=== PATIENT | female | born 1980 | race American Indian/Alaskan Native ===

== ENCOUNTER 2016-09-03 23:07 | Emergency (ER) | payer MEDICARE ==
[2016-09-04] MEDS ORDERED: CATAPRES PO ONE ×2 (00:45→03:13)
[2016-09-04] MEDS ORDERED: CATAPRES ONE ×2 (00:50→03:10)
[2016-09-04 00:56] LABS: Basophils % (Auto) 0.3 % (0.0-1.8); Eosinophils % (Auto) 1.5 % (0.0-4.3); Hematocrit 34.5 % (30.3-42.9); Mean Corpuscular HGB Conc 32 % (30-34); Mean Corpuscular Hemoglobin 28 pg (28-32); Mean Corpuscular Volume 86 fl (79-97); Platelet Count 335 K/mm3 (140-440); Red Blood Count 3.99 M/mm3 (3.65-5.03); Red Cell Distribution Width 15.7 % (13.2-15.2); White Blood Count 11.8 K/mm3 (4.5-11.0)
[2016-09-04 00:59] LABS: INR 0.93 (0.87-1.13)
[2016-09-04 01:00] LABS: Partial Thromboplastin Time 36.4 Sec. (24.2-36.6)
[2016-09-04 01:06] LABS: Anion Gap 15 mmol/L; BUN/Creatinine Ratio 18.75; Blood Urea Nitrogen 15 mg/dL (7-17); Calcium 8.9 mg/dL (8.4-10.2); Carbon Dioxide 27 mmol/L (22-30); Chloride 101.5 mmol/L (98-107); Glucose 81 mg/dL (65-100); Potassium 3.8 mmol/L (3.6-5.0); Sodium 140 mmol/L (137-145)
--- NOTE | 2016-09-04 02:00 | Cat Scan Report ---
FINAL REPORT PROCEDURE: CT HEAD/BRAIN WO CON TECHNIQUE: Computerized tomography of the head was performed without contrast material. HISTORY: HTN, Blurred vision, Headache COMPARISON: No prior studies are available for comparison. FINDINGS: Skull and scalp: Normal. Paranasal sinuses: Normal. Ventricles and subarachnoid spaces: Normal. Cerebrum: No evidence of hemorrhage, acute infarction or mass . Cerebellum and brainstem: No evidence of hemorrhage, acute infarction or mass. Vasculature: Normal. Comments: None. IMPRESSION: There is no evidence of an acute intracranial process
[2016-09-04] MEDS ORDERED: PERCOCET 5/325 PO ONE (04:18)
--- NOTE | 2016-09-04 04:26 | Emergency Department Report ---
ED Headache HPI - General Chief Complaint: High BP Stated Complaint: HEADACHE/HAND NUMBNESS/RT FOOT PAIN Time Seen by Provider: 09/04/16 04:07 Source: patient Exam Limitations: no limitations - History of Present Illness Initial Comments: 36-year-old female with past medical history of morbid obesity and hypertension presents to Hosp. complaining of headache 2 days. Headache is in the front part of her head and initially intermittent but now more constant. Pain is moderate in intensity described as throbbing and pressure-like. No neck pain or rigidity reported. Patient complained of intermittent blurred vision in which she is seeing stars. This comes and goes and denies visual abnormality at this time. Patient does not wear corrective lenses. Patient been noncompliant with her blood pressure medicine lisinopril 20 mg/ hydrochlorothiazide 25 mg for the past 2 days since running out of her medication. She complains of a chronic cut to her right plantar surface of her foot for at least 2 weeks that has become bigger and more painful. This initially started as a the crease area of her foot. Patient states her typical systolic pressures in the 150s and her diastolic is in the 80s to 90s. She was apparently seen recently at another ER diagnosed with anxiety attack. Patient is in the process of scheduling an appointment with a new PMD. Patient also complain of a firmness/hard sensation to her right nipple since getting a nipple ring removed. Allergies/Adverse Reactions: Allergies aspirin Allergy (Verified 09/03/16 23:48) Shortness of Breath Home Medications: Ambulatory Orders Lisinopril/Hydrochlorothiazide [Zestoretic 20-25 mg] 1 tab PO QDAY #30 tab 09/04 Neomycin Leigh/Bacitrac Zn/Poly [Neosporin Antibiotic Ointment] 1 appful TP TID #1 bottle 09/04/16 traMADol [Ultram 50 MG tab] 50 mg PO Q6HR PRN #20 tablet 09/04/16 ED Review of Systems ROS: Stated complaint: HEADACHE/HAND NUMBNESS/RT FOOT PAIN Other details as noted in HPI Comment: All other systems reviewed and negative Other: Constitutional: No fevers chills Eyes:as per hpi ENT: No ear pain or throat pain Neck: Denies pain Respiratory: Denies cough wheezing shortness of breath Cardiovascular: Denies chest pain, palpitations, syncope GI: Denies abdominal pain, nausea, vomiting, diarrhea : Denies dysuria Musculoskeletal: Denies back pain Skin: as per hpi Neurologic: Denies numbness, weakness Psychiatric: Denies suicidal ideation, hallucinations ED Past Medical Hx - Past Medical History Previous Medical History?: Yes Hx Hypertension: Yes Additional medical history: obesity - Surgical History Past Surgical History?: Yes Additional Surgical History: c-sec x 2 - Social History Smoking Status: Current Some Day Smoker Substance Use Type: Marijuana - Medications Home Medications: Home Medications Medication Instructions Recorded Confirmed Last Taken Type Lisinopril/Hydrochlorothiazide 1 tab PO QDAY #30 tab 09/04/16 Unknown Rx [Zestoretic 20-25 mg] Neomycin Leigh/Bacitrac Zn/Poly 1 appful TP TID #1 bottle 09/04/16 Unknown Rx [Neosporin Antibiotic Ointment] traMADol [Ultram 50 MG tab] 50 mg PO Q6HR PRN #20 tablet 09/04/16 Unknown Rx ED Physical Exam - General Limitations: No Limitations - Other Other exam information: General: No limitations, patient is alert in no acute distress Head exam: Atraumatic, normocephalic Eyes exam: Normal appearance, pupils equal reactive to light, extraocular movements intact. Visual acuity reported by our and is 20/25 OS, 20/30 OD and 20/20 OU ENT: Moist mucous membrane, normal oropharynx Neck exam: Normal inspection, full range of motion, no meningismus nontender Respiratory exam: Clear to auscultation bilateral, no wheezes, rales, crackles Breasts: Right nipple and breast evaluated. No abscess, erythema, or warmth. Cardiovascular: Normal rate and rhythm, normal heart sounds Abdomen: Soft, nondistended, and nontender, with normal bowel sounds, no rebound, or guarding Extremity: Full range of motion normal inspection no deformity Back: Normal Inspection, full range of motion, no tenderness Neurologic: Alert, oriented x3, cranial nerves intact, no motor or sensory deficit Psychiatric: normal affect, normal mood Skin: Right plantar surface is 5 cm skin cut at the crease of the foot. No warmth, erythema, or drainage. Foot is soiled ED Course Vital Signs 09/03/16 09/04/16 09/04/16 23:45 00:50 03:13 Temperature 98.5 F Pulse Rate 78 75 Respiratory 18 Rate Blood Pressure 185/110 Blood Pressure 181/106 191/123 [Right] O2 Sat by Pulse 100 Oximetry 09/04/16 09/04/16 09/04/16 03:14 03:59 04:16 Temperature Pulse Rate 70 71 Respiratory 18 Rate Blood Pressure 191/123 Blood Pressure 177/112 163/107 [Right] O2 Sat by Pulse 98 Oximetry 09/04/16 09/04/16 04:31 05:00 Temperature Pulse Rate Respiratory Rate Blood Pressure 166/100 168/90 Blood Pressure [Right] O2 Sat by Pulse 97 100 Oximetry - Reevaluation(s) Reevaluation #1: 09/04/16 05:30 gutierrez improved with Percocet in ed. ED Medical Decision Making - Lab Data Result diagrams: 09/04/16 00:21 09/04/16 00:21 Lab Results 09/04/16 09/04/16 09/04/16 Range/Units 00:21 00:21 00:21 WBC 11.8 H (4.5-11.0) K/mm3 RBC 3.99 (3.65-5.03) M/mm3 Hgb 11.0 (10.1-14.3) gm/dl Hct 34.5 (30.3-42.9) % MCV 86 (79-97) fl MCH 28 (28-32) pg MCHC 32 (30-34) % RDW 15.7 H (13.2-15.2) % Plt Count 335 (140-440) K/mm3 Lymph % (Auto) 31.6 (13.4-35.0) % [place] % (Auto) 8.4 H (0.0-7.3) % Eos % (Auto) 1.5 (0.0-4.3) % Baso % (Auto) 0.3 (0.0-1.8) % Lymph # 3.7 (1.2-5.4) K/mm3 [place] # 1.0 H (0.0-0.8) K/mm3 Eos # 0.2 (0.0-0.4) K/mm3 Baso # 0.0 (0.0-0.1) K/mm3 Seg Neutrophils % 58.2 (40.0-70.0) % Seg Neutrophils # 6.9 (1.8-7.7) K/mm3 PT (12.2-14.9) Sec. INR (0.87-1.13) APTT (24.2-36.6) Sec. Sodium 140 (137-145) mmol/L Potassium 3.8 (3.6-5.0) mmol/L Chloride 101.5 (98-107) mmol/L Carbon Dioxide 27 (22-30) mmol/L Anion Gap 15 mmol/L BUN 15 (7-17) mg/dL Creatinine 0.8 (0.7-1.2) mg/dL Estimated GFR > 60 ml/min BUN/Creatinine Ratio 18.75 % Glucose 81 (65-100) mg/dL Calcium 8.9 (8.4-10.2) mg/dL Troponin T (0.00-0.029) ng/mL HCG, Qual Negative (Negative) 09/04/16 09/04/16 Range/Units 00:21 02:47 WBC (4.5-11.0) K/mm3 RBC (3.65-5.03) M/mm3 Hgb (10.1-14.3) gm/dl Hct (30.3-42.9) % MCV (79-97) fl MCH (28-32) pg MCHC (30-34) % RDW (13.2-15.2) % Plt Count (140-440) K/mm3 Lymph % (Auto) (13.4-35.0) % [place] % (Auto) (0.0-7.3) % Eos % (Auto) (0.0-4.3) % Baso % (Auto) (0.0-1.8) % Lymph # (1.2-5.4) K/mm3 [place] # (0.0-0.8) K/mm3 Eos # (0.0-0.4) K/mm3 Baso # (0.0-0.1) K/mm3 Seg Neutrophils % (40.0-70.0) % Seg Neutrophils # (1.8-7.7) K/mm3 PT 12.9 (12.2-14.9) Sec. INR 0.93 (0.87-1.13) APTT 36.4 (24.2-36.6) Sec. Sodium (137-145) mmol/L Potassium (3.6-5.0) mmol/L Chloride (98-107) mmol/L Carbon Dioxide (22-30) mmol/L Anion Gap mmol/L BUN (7-17) mg/dL Creatinine (0.7-1.2) mg/dL Estimated GFR ml/min BUN/Creatinine Ratio % Glucose (65-100) mg/dL Calcium (8.4-10.2) mg/dL Troponin T < 0.010 (0.00-0.029) ng/mL HCG, Qual (Negative) - EKG Data -: EKG Interpreted by Me (sinus rhythm rate [address] elevation IL or T inversion ) - Radiology Data Radiology results: report reviewed (CT head: No acute findings) - Medical Decision Making Patient receiving several doses of clonidine 0.1 mg with repeat dose with reduction of blood pressure. CT does not show any acute abnormality. Percocet provided in the ED for pain. Right foot wound is chronic in tender to palpation however, no erythema, warmth, edema, or drainage noted. Patient encouraged to keep her feet clean to decrease risk of subsequent infection. Antibiotics and topical ointment will be prescribed. Podiatry follow-up will be encouraged - Differential Diagnosis hypertensive emergency, ICH, hypertensive urgency, medication noncompliance Critical Care Time: No Critical care attestation.: If time is entered above; I have spent that time in minutes in the direct care of this critically ill patient, excluding procedure time. ED Disposition Clinical Impression: Hypertension, uncontrolled, Noncompliance with medication regimen, Headache, Foot laceration Disposition: TO HOME OR SELFCARE Is pt being admited?: No Does the pt Need Aspirin: No Condition: Stable Instructions: Hypertension (ED), Laceration (ED), Acute Headache (ED) Additional Instructions: Take the medication as prescribed. Follow up with your primary care doctor and savings counselor provided. Return if symptoms worsen Prescriptions: Lisinopril/Hydrochlorothiazide [Zestoretic 20-25 mg] 1 tab PO QDAY #30 tab Neomycin Leigh/Bacitrac Zn/Poly [Neosporin Antibiotic Ointment] 1 appful TP TID #1 bottle traMADol [Ultram 50 MG tab] 50 mg PO Q6HR PRN #20 tablet PRN Reason: Pain Referrals: PRIMARY CARE, [Primary Care Provider] - 3-5 Days RAFA RUIZ DPM [Staff Physician] - 3-5 Days Time of Disposition: 05:26
[2016-09-04] MEDS ORDERED: ZESTRIL PO ONE (04:29)
[2016-09-04 05:17] VITALS: BP 168/90
== END 2016-09-04 05:37 | disposition home or self-care (01) ==
LOC: ED 23:07
DX: I10 Essential (primary) hypertension (principal); S91.311A Laceration without foreign body, right foot, initial encounter; R51 Headache; F17.200 Nicotine dependence, unspecified, uncomplicated; Z79.82 Long term (current) use of aspirin; X58.XXXD Exposure to other specified factors, subsequent encounter; Y99.8 Other external cause status; E66.9 Obesity, unspecified; X58.XXXA Exposure to other specified factors, initial encounter; Y93.89 Activity, other specified; Y92.89 Other specified places as the place of occurrence of the external cause
CPT/HCPCS: 36415; 70450; 80048; 84484; 84703; 85025; 85610; 85730; 93005; 93010

== ENCOUNTER 2017-01-10 14:43 | Emergency (ER) | payer MEDICARE ==
[2017-01-10 14:58] VITALS: BP 169/95
--- NOTE | 2017-01-10 15:06 | Emergency Department Report ---
Chief Complaint: Abdominal Pain Stated Complaint: ABDOMINAL PAIN/HEADACHE - HPI History of Present Illness: This is a 36-year-old female nontoxic, well nourished in appearance, no acute signs of distress presents to the ED with c/o of generalized abdominal pain 1 day. Patient describes pain as aching level of 8 out of 10. Patient also states she has slight nausea with vomiting as stated vomit consists of food. Last BM last night and normal. She denies any chest pain, shortness of breath, vaginal discharge, dysuria, polyuria, diarrhea, constipation, fever, chills. - Exam Vital Signs: Vital Signs 01/10/17 14:56 Temperature 98.3 F Pulse Rate 75 Respiratory 20 Rate Blood Pressure 169/95 O2 Sat by Pulse 100 Oximetry Physical Exam: GENERAL: The patient is a well-developed, well-nourished female in no apparent distress. Patient is alert and acting appropriately for age. Alert and oriented 3, no apparent distress, normal gait, atraumatic. ABDOMEN: Slight tenderness to generalized abdomen. Soft and nondistended. Positive bowel sounds. No hepatosplenomegaly was noted. No guarding or rebound tenderness, negative epigastric bruit. Negative psoas sign, negative jackson sign , negative McBurneys sign MSE screening note: Focused history and physical exam performed. Due to findings the following was ordered: 1- This initial assessment/diagnostic orders/clinical plan/ treatment(s) is/are subject to change based on pt's health status, clinical progression and re- assessment by fellow clinical providers in the ED. Further treatment and workup at subsequent clinical provers discretion. Patient/guardians urged not to elope from ED as their condition may be serious if not clinically assessed and managed. 2-CBC, CMP, UA, test, lipase, amylase ED Disposition for MSE Condition: Stable Instructions: Abdominal Pain (ED)
[2017-01-10 15:24] LABS: Basophils % (Auto) 0.3 % (0.0-1.8); Eosinophils % (Auto) 0.1 % (0.0-4.3); Hematocrit 38.4 % (30.3-42.9); Hemoglobin 12.5 gm/dl (10.1-14.3); Mean Corpuscular HGB Conc 33 % (30-34); Mean Corpuscular Hemoglobin 28 pg (28-32); Mean Corpuscular Volume 87 fl (79-97); Platelet Count 286 K/mm3 (140-440); Red Blood Count 4.43 M/mm3 (3.65-5.03); Red Cell Distribution Width 15.5 % (13.2-15.2); White Blood Count 7.2 K/mm3 (4.5-11.0)
[2017-01-10 15:57] LABS: Bilirubin,Urine NEG (Negative); Blood,Urine MOD (Negative); Ketones,Urine TR mg/dL (Negative); Leukocyte Esterase,Urine NEG (Negative); Mucus,Urine FEW /HPF; Nitrite,Urine NEG (Negative); Protein,Urine <15 mg/dL mg/dL (Negative); Urobilinogen,Urine < 2.0 mg/dL (<2.0)
[2017-01-10 16:54] LABS: Alanine Aminotransferase 8 units/L (7-56); Albumin 3.9 g/dL (3.9-5); Alkaline Phosphatase 71 units/L (35-129); Amylase 26 units/L (27-131); Anion Gap 18 mmol/L; Blood Urea Nitrogen 9 mg/dL (7-17); Carbon Dioxide 24 mmol/L (22-30); Glucose 73 mg/dL (65-100); Lipase 19 units/L (13-60); Potassium 3.8 mmol/L (3.6-5.0); Sodium 135 mmol/L (137-145)
[2017-01-10 17:21] LABS: BUN/Creatinine Ratio 13; Calcium 8.7 mg/dL (8.4-10.2)
[2017-01-10] MEDS ORDERED: TYLENOL ONE (18:44)
[2017-01-10] MEDS ORDERED: TYLENOL PO ONE (18:44)
== END 2017-01-10 17:15 | disposition left against medical advice (07) ==
LOC: ED 14:43
DX: R10.9 Unspecified abdominal pain (principal); R51 Headache; Z53.21 Procedure and treatment not carried out due to patient leaving prior to being seen by health care provider
CPT/HCPCS: 36415; 80053; 81001; 82150; 83690; 84703; 85025

== ENCOUNTER 2017-01-11 10:09 | Emergency (ER) | payer MEDICARE ==
[2017-01-11 11:03] LABS: Hematocrit 38.4 % (30.3-42.9); Hemoglobin 12.3 gm/dl (10.1-14.3); Mean Corpuscular HGB Conc 32 % (30-34); Mean Corpuscular Hemoglobin 28 pg (28-32); Mean Corpuscular Volume 86 fl (79-97); Platelet Count 271 K/mm3 (140-440); Red Blood Count 4.45 M/mm3 (3.65-5.03); Red Cell Distribution Width 15.7 % (13.2-15.2); White Blood Count 5.6 K/mm3 (4.5-11.0)
[2017-01-11 11:16] LABS: Anion Gap 17 mmol/L; BUN/Creatinine Ratio 13; Blood Urea Nitrogen 9 mg/dL (7-17); Calcium 8.6 mg/dL (8.4-10.2); Carbon Dioxide 27 mmol/L (22-30); Chloride 99.1 mmol/L (98-107); Glucose 91 mg/dL (65-100); Potassium 3.9 mmol/L (3.6-5.0); Sodium 139 mmol/L (137-145)
[2017-01-11 11:38] LABS: Basophils % (Manual) 0 % (0.0-1.8); Blastocytes % (Manual) 0 %; Eosinophils % (Manual) 0 % (0.0-4.3)
[2017-01-11 11:39] LABS: Anisocytosis 1+
[2017-01-11 11:40] LABS: Diff Status Complete; Microcytosis 1+; Ovalocytes Few; Stomatocytes Rare
[2017-01-11] MEDS ORDERED: MORPHINE IV ONE ×2 (17:49→21:41)
[2017-01-11 19:10] LABS: Bacteria,Urine 1+ /HPF (Negative); Bilirubin,Urine NEG (Negative); Blood,Urine NEG (Negative); Ketones,Urine 20 mg/dL (Negative); Leukocyte Esterase,Urine NEG (Negative); Mucus,Urine 3+ /HPF; Nitrite,Urine NEG (Negative); Urobilinogen,Urine < 2.0 mg/dL (<2.0)
[2017-01-11] MEDS ORDERED: ZOFRAN IV ONE (21:41)
--- NOTE | 2017-01-11 21:46 | Ultrasound Report ---
FINAL REPORT EXAM: US ABDOMEN LIMITED HISTORY: RUQ pain TECHNIQUE: Ultrasound right upper quadrant PRIORS: None. FINDINGS: No focal abnormality identified in the liver parenchyma Gallbladder demonstrates no evidence for cholelithiasis or wall thickening. The common bile duct is within normal limits 0.38 centimeters the right kidney is 10.8 x 5.6 x 4.9 centimeters. No evidence for hydronephrosis. Normal renal echogenicity seen Pancreas was not visualized due to overlying bowel gas IMPRESSION: Negative. No evidence for cholelithiasis or biliary obstruction
[2017-01-11] MEDS ORDERED: LIDOCAINE VISCOUS 2% PO ONE (22:38)
[2017-01-11] MEDS ORDERED: MILK OF MAGNESIA PO ONE (22:38)
--- NOTE | 2017-01-11 23:02 | Emergency Department Report ---
ED Abdominal Pain HPI - General Chief Complaint: Abdominal Pain Stated Complaint: ABDOMINAL PAIN,VOMITING Time Seen by Provider: 01/11/17 16:08 Source: patient Mode of arrival: Ambulatory Limitations: No Limitations - History of Present Illness Initial Comments: Patient with abdominal pain for 2 days and has not been able to eat. Screened last night but left before being seen. Last BM was yesterday. Has h/o HTN. MD Complaint: abdominal pain -: days(s) (2) Location: RUQ Radiation: none Migration to: no migration Severity: moderate Severity scale (0 -10): 10 Quality: cramping, stabbing, sharp Consistency: constant, intermittent Improves With: nothing Worsens With: eating Associated Symptoms: denies other symptoms, nausea, vomiting - Related Data Previous Rx's Medication Instructions Recorded Last Taken Type Lisinopril/Hydrochlorothiazide 1 tab PO QDAY #30 tab 09/04/16 Unknown Rx [Zestoretic 20-25 mg] Neomycin/Bacitracin/Polymyxinb 1 appful TP TID #1 bottle 09/04/16 Unknown Rx [Neosporin Antibiotic Ointment] traMADol [Ultram 50 MG tab] 50 mg PO Q6HR PRN #20 tablet 09/04/16 Unknown Rx Omeprazole 40 mg PO DAILY #14 capsule. 01/11/17 Unknown Rx Ondansetron [Zofran TAB] 4 mg PO Q8HR PRN #30 tablet 01/11/17 Unknown Rx Sucralfate [Carafate] 1 gm PO Q6HR #40 tablet 01/11/17 Unknown Rx Allergies Allergy/AdvReac Type Severity Reaction Status Date / Time aspirin Allergy Shortness Verified 01/10/17 14:56 of Breath ED Review of Systems ROS: Stated complaint: ABDOMINAL PAIN,VOMITING Other details as noted in HPI Constitutional: denies: chills, fever Eyes: denies: eye pain, eye discharge, vision change ENT: denies: ear pain, throat pain Respiratory: denies: cough, shortness of breath, wheezing Cardiovascular: denies: chest pain, palpitations Endocrine: no symptoms reported Gastrointestinal: abdominal pain, nausea, vomiting. denies: diarrhea Genitourinary: denies: urgency, dysuria, discharge Musculoskeletal: denies: back pain, joint swelling, arthralgia Skin: denies: rash, lesions Neurological: denies: headache, weakness, paresthesias Psychiatric: denies: anxiety, depression Hematological/Lymphatic: denies: easy bleeding, easy bruising ED Past Medical Hx - Past Medical History Previous Medical History?: Yes Hx Hypertension: Yes Additional medical history: obesity - Surgical History Past Surgical History?: Yes Additional Surgical History: c-sec x 2; scar tissue removal 2012 - Social History Smoking Status: Never Smoker Substance Use Type: None - Medications Home Medications: Home Medications Medication Instructions Recorded Confirmed Last Taken Type Lisinopril/Hydrochlorothiazide 1 tab PO QDAY #30 tab 09/04/16 Unknown Rx [Zestoretic 20-25 mg] Neomycin/Bacitracin/Polymyxinb 1 appful TP TID #1 bottle 09/04/16 Unknown Rx [Neosporin Antibiotic Ointment] traMADol [Ultram 50 MG tab] 50 mg PO Q6HR PRN #20 tablet 09/04/16 Unknown Rx Omeprazole 40 mg PO DAILY #14 capsule.dr 01/11/17 Unknown Rx Ondansetron [Zofran TAB] 4 mg PO Q8HR PRN #30 tablet 01/11/17 Unknown Rx Sucralfate [Carafate] 1 gm PO Q6HR #40 tablet 01/11/17 Unknown Rx ED Physical Exam - General Limitations: No Limitations General appearance: alert, in no apparent distress - Head Head exam: Present: atraumatic, normocephalic - Eye Eye exam: Present: normal appearance - ENT ENT exam: Present: mucous membranes moist - Neck Neck exam: Present: normal inspection - Respiratory Respiratory exam: Present: normal lung sounds bilaterally. Absent: respiratory distress - Cardiovascular Cardiovascular Exam: Present: regular rate, normal rhythm. Absent: systolic murmur, diastolic murmur, rubs, gallop - GI/Abdominal GI/Abdominal exam: Present: soft, tenderness (RUQ but no peritonitis), normal bowel sounds - Extremities Exam Extremities exam: Present: normal inspection - Back Exam Back exam: Present: normal inspection - Neurological Exam Neurological exam: Present: alert, oriented X3 - Psychiatric Psychiatric exam: Present: normal affect, normal mood - Skin Skin exam: Present: warm, dry, intact, normal color. Absent: rash ED Course Vital Signs 01/11/17 01/11/17 01/11/17 10:26 16:20 16:24 Temperature 98.7 F 98.5 F Pulse Rate 78 69 68 Respiratory 16 16 13 Rate Blood Pressure 134/78 Blood Pressure 118/68 [Right] O2 Sat by Pulse 98 99 Oximetry 01/11/17 01/11/17 01/11/17 16:30 16:46 17:00 Temperature Pulse Rate 71 64 76 Respiratory 15 12 17 Rate Blood Pressure 118/68 118/68 118/68 Blood Pressure [Right] O2 Sat by Pulse 99 100 100 Oximetry 01/11/17 01/11/17 01/11/17 17:16 17:30 18:00 Temperature Pulse Rate 70 73 Respiratory 28 H 18 Rate Blood Pressure 125/77 125/77 125/77 Blood Pressure [Right] O2 Sat by Pulse 100 100 98 Oximetry 01/11/17 01/11/17 01/11/17 18:40 19:00 19:54 Temperature 98.3 F Pulse Rate Respiratory 18 Rate Blood Pressure 125/77 125/77 Blood Pressure [Right] O2 Sat by Pulse 99 92 100 Oximetry 01/11/17 01/11/17 01/11/17 19:55 20:00 20:31 Temperature Pulse Rate Respiratory Rate Blood Pressure 131/73 137/81 Blood Pressure [Right] O2 Sat by Pulse 96 97 98 Oximetry 01/11/17 01/11/17 01/11/17 21:01 21:31 22:00 Temperature Pulse Rate Respiratory Rate Blood Pressure 138/73 138/73 139/86 Blood Pressure [Right] O2 Sat by Pulse 100 97 94 Oximetry ED Medical Decision Making - Lab Data Result diagrams: 01/11/17 10:43 01/11/17 10:43 Unremarkable - Radiology Data Radiology results: report reviewed Normal US - Medical Decision Making Patient does not have gallbladder pathology. She likely has gastritis with esophagitis. She had some relief with GI cocktail. Will do carafate, zofran, and omeprazole. Critical care attestation.: If time is entered above; I have spent that time in minutes in the direct care of this critically ill patient, excluding procedure time. ED Disposition Clinical Impression: Abdominal pain, RUQ, Gastritis and duodenitis Disposition: - TO HOME OR SELFCARE Is pt being admited?: No Does the pt Need Aspirin: No Condition: Good Instructions: Abdominal Pain (ED) Prescriptions: Omeprazole 40 mg PO DAILY #14 capsule. Ondansetron [Zofran TAB] 4 mg PO Q8HR PRN #30 tablet PRN Reason: Nausea Sucralfate [Carafate] 1 gm PO Q6HR #40 tablet Referrals: PRIMARY CARE, [Primary Care Provider] - 3-5 Days Time of Disposition: 23:07
[2017-01-11 23:15] VITALS: BP 120/70
== END 2017-01-11 23:29 | disposition home or self-care (01) ==
LOC: ED 10:09
DX: K29.70 Gastritis, unspecified, without bleeding (principal); R10.10 Upper abdominal pain, unspecified; I10 Essential (primary) hypertension; Z98.890 Other specified postprocedural states; Z88.8 Allergy status to other drugs, medicaments and biological substances
CPT/HCPCS: 36415; 76705; 80048; 81001; 82962; 84703; 85007; 85025; 96374; 96375; 96376; 99284; J2270; J2405

== ENCOUNTER 2017-08-27 11:16 | Emergency (ER) | payer MEDICARE ==
[2017-08-27 12:23] LABS: Bacteria,Urine 1+ /HPF (Negative); Bilirubin,Urine NEG (Negative); Blood,Urine NEG (Negative); Color,Urine Yellow (Yellow); HCG Qualitative,Urine Negative (Negative); Mucus,Urine FEW /HPF; Urobilinogen,Urine < 2.0 mg/dL (<2.0)
[2017-08-27] MEDS ORDERED: TORADOL IV ONE (13:21)
[2017-08-27] MEDS ORDERED: ZOFRAN IV ONE (13:21)
[2017-08-27] MEDS ORDERED: PEPCID IV ONE ×2 (13:21→15:39)
[2017-08-27] MEDS ORDERED: NACL 0.9% 1000 ML 1,000 ML IV ONE (13:21)
--- NOTE | 2017-08-27 13:24 | Emergency Department Report ---
Blank Doc - Documentation Documentation: Patient is a 37-year-old [place] female who is presenting with right upper quadrant pain with radiation to the right mid back for approximately 10 days. Patient states pain is worse after she eats has been some nausea and vomiting as well. Patient has an appointment to see a GI doctor coming up soon does not see anyone as of yet. Patient denies any fever at this time. Patient will be physical exam does have some right upper quadrant tenderness. Patient morbidly obese. Patient will have a ultrasound of the abdomen done to rule out gallstones and cholecystitis the patient will be reassessed. Is
[2017-08-27 14:49] LABS: Basophils % (Auto) 0.2 % (0.0-1.8); Eosinophils # (Auto) 0.1 K/mm3 (0.0-0.4); Hematocrit 34.4 % (30.3-42.9); Hemoglobin 11.6 gm/dl (10.1-14.3); Lymphocytes # (Auto) 2.4 K/mm3 (1.2-5.4); Mean Corpuscular HGB Conc 34 % (30-34); Mean Corpuscular Hemoglobin 28 pg (28-32); Mean Corpuscular Volume 83 fl (79-97); Monocytes # (Auto) 1.1 K/mm3 (0.0-0.8); Monocytes % (Auto) 13.3 % (0.0-7.3); Platelet Count 281 K/mm3 (140-440); Red Blood Count 4.17 M/mm3 (3.65-5.03); Red Cell Distribution Width 16.7 % (13.2-15.2)
--- NOTE | 2017-08-27 14:53 | Ultrasound Report ---
FINAL REPORT EXAM: US ABDOMEN COMPLETE HISTORY: right upper quad pain TECHNIQUE: Abdomen ultrasound. PRIORS: Limited abdomen ultrasound January 11, 2017. FINDINGS: Evaluation limited by patient body habitus. Liver: Unremarkable. No distinct lesions. Gallbladder: No gallstones or sludge. Wall is within normal limits. 3.9 mm common bile duct is within normal limits. Pancreas: Limited evaluation because of patient's body habitus. Kidneys: 11.6 and 11.9 cm right and left kidneys are unremarkable. Spleen: Unremarkable. 10.7 cm. Proximal aorta measures 1.8 cm. IVC is patent. No free fluid. IMPRESSION: Unremarkable.
--- NOTE | 2017-08-27 14:57 | Emergency Department Report ---
ED Abdominal Pain HPI - General Chief Complaint: Abdominal Pain Stated Complaint: ABDOMINAL/BACK PAIN Time Seen by Provider: 08/27/17 13:08 Source: patient Mode of arrival: Ambulatory Limitations: No Limitations - History of Present Illness Initial Comments: This is a 38-year-old female nontoxic, well nourished in appearance, no acute signs of distress presents to the ED with c/o of acute on chronic right upper abdominal pain. Patient states is nauseous but denies any vomiting. Patient describes abdominal pain as cramping and aching with level of 3/10. Patient does follow a primary care doctor for this. Patient denies chest pain, short of breath, fever, chills, headache, stiff neck, numbness or tingling. Patient denies any diarrhea or constipation. Patient denies any vaginal bleeding or discharge. Patient denies any recent travels. Patient stated allergies to aspirin MD Complaint: abdominal pain -: month(s) Location: RUQ Radiation: R flank Migration to: no migration Severity: mild Severity scale (0 -10): 3 Quality: aching Consistency: intermittent Improves With: nothing Worsens With: nothing Associated Symptoms: nausea. denies: vomiting, diarrhea, fever, chills, constipation, dysuria, hematemesis, hematochezia, melena, hematuria, anorexia, syncope - Related Data Previous Rx's Medication Instructions Recorded Last Taken Type Lisinopril/Hydrochlorothiazide 1 tab PO QDAY #30 tab 09/04/16 Unknown Rx [Zestoretic 20-25 mg] Neomycin/Bacitracin/Polymyxinb 1 appful TP TID #1 bottle 09/04/16 Unknown Rx [Neosporin Antibiotic Ointment] traMADol [Ultram 50 MG tab] 50 mg PO Q6HR PRN #20 tablet 09/04/16 Unknown Rx Omeprazole 40 mg PO DAILY #14 capsule. 01/11/17 Unknown Rx Ondansetron [Zofran TAB] 4 mg PO Q8HR PRN #30 tablet 01/11/17 Unknown Rx Sucralfate [Carafate] 1 gm PO Q6HR #40 tablet 01/11/17 Unknown Rx Acetaminophen 500 mg PO Q8H PRN #30 tablet 08/27/17 Unknown Rx Ondansetron [Zofran Odt] 4 mg PO Q8HR PRN #20 tab.rapdis 08/27/17 Unknown Rx Sulfamethoxazole/Trimethoprim 1 each PO BID #14 tablet 08/27/17 Unknown Rx [Bactrim DS TAB] Allergies Allergy/AdvReac Type Severity Reaction Status Date / Time aspirin Allergy Shortness Verified 01/10/17 14:56 of Breath ED Review of Systems ROS: Stated complaint: ABDOMINAL/BACK PAIN Other details as noted in HPI Constitutional: denies: chills, fever Eyes: denies: eye pain, eye discharge, vision change ENT: denies: ear pain, throat pain Respiratory: denies: cough, shortness of breath, wheezing Cardiovascular: denies: chest pain, palpitations Endocrine: no symptoms reported Gastrointestinal: abdominal pain, nausea. denies: vomiting, diarrhea Genitourinary: denies: urgency, dysuria, discharge Musculoskeletal: denies: back pain, joint swelling, arthralgia Skin: denies: rash, lesions Neurological: denies: headache, weakness, paresthesias Psychiatric: denies: anxiety, depression Hematological/Lymphatic: denies: easy bleeding, easy bruising ED Past Medical Hx - Past Medical History Hx Hypertension: Yes Additional medical history: obesity, IBS - Surgical History Additional Surgical History: c-sec x 2; scar tissue removal 2012 - Social History Smoking Status: Never Smoker Substance Use Type: None - Medications Home Medications: Home Medications Medication Instructions Recorded Confirmed Last Taken Type Lisinopril/Hydrochlorothiazide 1 tab PO QDAY #30 tab 09/04/16 Unknown Rx [Zestoretic 20-25 mg] Neomycin/Bacitracin/Polymyxinb 1 appful TP TID #1 bottle 09/04/16 Unknown Rx [Neosporin Antibiotic Ointment] traMADol [Ultram 50 MG tab] 50 mg PO Q6HR PRN #20 tablet 09/04/16 Unknown Rx Omeprazole 40 mg PO DAILY #14 capsule. 01/11/17 Unknown Rx Ondansetron [Zofran TAB] 4 mg PO Q8HR PRN #30 tablet 01/11/17 Unknown Rx Sucralfate [Carafate] 1 gm PO Q6HR #40 tablet 01/11/17 Unknown Rx Acetaminophen 500 mg PO Q8H PRN #30 tablet 08/27/17 Unknown Rx Ondansetron [Zofran Odt] 4 mg PO Q8HR PRN #20 tab.rapdis 08/27/17 Unknown Rx Sulfamethoxazole/Trimethoprim 1 each PO BID #14 tablet 08/27/17 Unknown Rx [Bactrim DS TAB] ED Physical Exam - General Limitations: No Limitations General appearance: alert, in no apparent distress - Head Head exam: Present: atraumatic, normocephalic - Eye Eye exam: Present: normal appearance Pupils: Present: normal accommodation - ENT ENT exam: Present: normal exam, mucous membranes moist - Neck Neck exam: Present: normal inspection, full ROM. Absent: tenderness, meningismus, lymphadenopathy - Respiratory Respiratory exam: Present: normal lung sounds bilaterally. Absent: respiratory distress, wheezes, rales, rhonchi, stridor, chest wall tenderness, accessory muscle use, decreased breath sounds, prolonged expiratory - Cardiovascular Cardiovascular Exam: Present: regular rate, normal rhythm, normal heart sounds. Absent: bradycardia, tachycardia, irregular rhythm, systolic murmur, diastolic murmur, rubs, gallop - GI/Abdominal GI/Abdominal exam: Present: soft, tenderness (RUQ), normal bowel sounds. Absent : distended, guarding, rebound, rigid, diminished bowel sounds - Expanded GI/Abdominal Exam Expanded GI/Abdominal exam: Absent: psoas sign, obturator sign, heel tap sign, Lafaro's sign, Rovsing's sign, tenderness at Mcbur[place]'s Point, ascites - Rectal Rectal exam: Present: deferred - Extremities Exam Extremities exam: Present: normal inspection, full ROM, normal capillary refill. Absent: tenderness - Back Exam Back exam: Present: normal inspection, full ROM. Absent: tenderness, CVA tenderness (R), CVA tenderness (L), muscle spasm, paraspinal tenderness, vertebral tenderness, rash noted - Neurological Exam Neurological exam: Present: alert, oriented X3, normal gait - Psychiatric Psychiatric exam: Present: normal affect, normal mood - Skin Skin exam: Present: warm, dry, intact, normal color. Absent: rash ED Course Vital Signs 08/27/17 11:36 Temperature 98 F Pulse Rate 87 Respiratory 20 Rate Blood Pressure 174/88 O2 Sat by Pulse 97 Oximetry - Reevaluation(s) Reevaluation #1: 08/27/17 14:58 Patient is speaking in full sentences with no signs of distress noted. - Consultations Consultation #1: Patient has been consulted with Josemanuel Cotton about patient history, physical exam, and labs/US report and examined and screened patient and agrees to ED plan of care and discharge plan of care. ED Medical Decision Making - Lab Data Result diagrams: 08/27/17 14:39 - Medical Decision Making This is a 37-year-old female that presents with abdominal pain and UTI. Patient is stable and was examined by me and Dr. Kee. There is slight abdominal tenderness. Negative signs of symptoms of appendicitis. Labs obtained. UA obtained with slight elevation in WBCs. US of abdomen obtained and dictated by the radiologist. Patient is notified of the report with no questions noted by the patient. Vital signs are stable prior to discharge. Patient received 1L normal saline, Zofran, Pepcid, and Toradol in the ED which patient stated symptoms has resolved and subsided. A by mouth challenge has been obtained and patient tolerated well with no nausea vomiting. Patient was notified of strict precautions of appendicitis symptoms and to return to the ED if symptoms occurs as soon as possible. Patient was also instructed to Follow- up with a primary care doctor in 3-5 days or if symptoms worsen and continue return to emergency room as soon as possible. At time of discharge, the patient does not seem toxic or ill in appearance. No acute signs of distress noted. Patient agrees to discharge treatment plan of care. No further questions noted by the patient. Critical care attestation.: If time is entered above; I have spent that time in minutes in the direct care of this critically ill patient, excluding procedure time. ED Disposition Clinical Impression: Nausea, UTI (urinary tract infection) Abdominal pain Qualifiers: Abdominal location: right upper quadrant Qualified Code(s): R10.11 - Right upper quadrant pain Disposition: - TO HOME OR SELFCARE Is pt being admited?: No Does the pt Need Aspirin: No Condition: Stable Instructions: Acute Nausea and Vomiting (ED), Abdominal Pain (ED) Additional Instructions: Follow-up with a primary care/GI doctor in 3-5 days or if symptoms worsen and continue return to emergency room as soon as possible. Prescriptions: Acetaminophen 500 mg PO Q8H PRN #30 tablet PRN Reason: Pain , Severe (7-10) Ondansetron [Zofran Odt] 4 mg PO Q8HR PRN #20 tab.rapdis PRN Reason: Nausea Sulfamethoxazole/Trimethoprim [Bactrim DS TAB] 1 each PO BID #14 tablet Referrals: PRIMARY CARE, [Primary Care Provider] - 3-5 Days RAFAT LIM MD [Staff Physician] - 3-5 Days [facility] [Provider Group] - 3-5 Days [facility] [Outside] - 3-5 Days Forms: Work/School Release Form(ED)
[2017-08-27 15:04] LABS: Alanine Aminotransferase 9 units/L (7-56); Albumin 3.9 g/dL (3.9-5); BUN/Creatinine Ratio 21; Blood Urea Nitrogen 15 mg/dL (7-17); Calcium 8.8 mg/dL (8.4-10.2); Hemolysis Index 1
[2017-08-27] MEDS ORDERED: TORADOL ONE (15:38)
[2017-08-27] MEDS ORDERED: ZOFRAN ONE (15:38)
[2017-08-27] MEDS ORDERED: TYLENOL PO ONE (16:53)
[2017-08-27 17:12] VITALS: BP 168/88
== END 2017-08-27 17:11 | disposition home or self-care (01) ==
LOC: ED 11:16
DX: N39.0 Urinary tract infection, site not specified (principal); I10 Essential (primary) hypertension; Z88.6 Allergy status to analgesic agent
CPT/HCPCS: 36415; 76700; 80053; 81001; 81025; 83690; 85025; 96374; 96375; 99284; J1885; J2405; J7030

== ENCOUNTER 2017-09-11 20:03 | Emergency (ER) | payer MEDICARE ==
[2017-09-11 21:44] VITALS: BP 157/92
[2017-09-11 22:08] LABS: Basophils % (Auto) 0.3 % (0.0-1.8); Eosinophils # (Auto) 0.1 K/mm3 (0.0-0.4); Eosinophils % (Auto) 0.6 % (0.0-4.3); Hematocrit 34.9 % (30.3-42.9); Lymphocytes # (Auto) 1.9 K/mm3 (1.2-5.4); Mean Corpuscular HGB Conc 34 % (30-34); Mean Corpuscular Hemoglobin 28 pg (28-32); Mean Corpuscular Volume 82 fl (79-97); Monocytes # (Auto) 1.4 K/mm3 (0.0-0.8); Monocytes % (Auto) 12.8 % (0.0-7.3); Platelet Count 335 K/mm3 (140-440); Red Blood Count 4.23 M/mm3 (3.65-5.03); Red Cell Distribution Width 16.6 % (13.2-15.2)
[2017-09-11 22:19] LABS: Alanine Aminotransferase 7 units/L (7-56); Albumin 4.1 g/dL (3.9-5); BUN/Creatinine Ratio 17; Blood Urea Nitrogen 12 mg/dL (7-17); Calcium 9.3 mg/dL (8.4-10.2); Hemolysis Index 4
[2017-09-11] MEDS ORDERED: TYLENOL PO ONE (23:50)
== END 2017-09-12 01:11 | disposition left against medical advice (07) ==
LOC: ED 20:03
DX: N64.4 Mastodynia (principal); Z53.21 Procedure and treatment not carried out due to patient leaving prior to being seen by health care provider
CPT/HCPCS: 36415; 80053; 85025

== ENCOUNTER 2017-09-12 07:37 | Emergency (ER) | payer MEDICARE ==
--- NOTE | 2017-09-12 09:33 | Emergency Department Report ---
- General Chief complaint: Skin/Abscess/Foreign Body Stated complaint: BREAST/RIGHT ARM PAIN Time Seen by Provider: 09/12/17 09:22 Source: patient Mode of arrival: Ambulatory Limitations: No Limitations - History of Present Illness Initial comments: Patient is a 37-year-old female who is presenting with right breast swelling. Patient states that for the past year off and on she does have some discomfort in the right breast. Patient states for the past 3-4 days he's had some increased swelling and pain. Patient states pain is a 6 out of 10 and aching. She denies any nipple discharge. Patient states has been no fevers chills nausea vomiting at this time. - Related Data Previous Rx's Medication Instructions Recorded Last Taken Type Lisinopril/Hydrochlorothiazide 1 tab PO QDAY #30 tab 09/04/16 Unknown Rx [Zestoretic 20-25 mg] Neomycin/Bacitracin/Polymyxinb 1 appful TP TID #1 bottle 09/04/16 Unknown Rx [Neosporin Antibiotic Ointment] traMADol [Ultram 50 MG tab] 50 mg PO Q6HR PRN #20 tablet 09/04/16 Unknown Rx Omeprazole 40 mg PO DAILY #14 capsule.dr 01/11/17 Unknown Rx Ondansetron [Zofran TAB] 4 mg PO Q8HR PRN #30 tablet 01/11/17 Unknown Rx Sucralfate [Carafate] 1 gm PO Q6HR #40 tablet 01/11/17 Unknown Rx Acetaminophen 500 mg PO Q8H PRN #30 tablet 08/27/17 Unknown Rx Ondansetron [Zofran Odt] 4 mg PO Q8HR PRN #20 tab.rapdis 08/27/17 Unknown Rx Sulfamethoxazole/Trimethoprim 1 each PO BID #14 tablet 08/27/17 Unknown Rx [Bactrim DS TAB] Clindamycin [Clindamycin CAP] 300 mg PO Q8H 7 Days cap 09/12/17 Unknown Rx HYDROcodone/APAP 5-325 [[place] 1 each PO Q6HR PRN #15 tablet 09/12/17 Unknown Rx 5/325] Ibuprofen [Motrin] 800 mg PO Q8HR PRN #14 tablet 09/12/17 Unknown Rx Allergies Allergy/AdvReac Type Severity Reaction Status Date / Time aspirin Allergy Shortness Verified 09/12/17 07:49 of Breath Abscess Boil HPI - HPI Chief Complaint: Skin/Abscess/Foreign Body Stated Complaint: BREAST/RIGHT ARM PAIN Time Seen by Provider: 09/12/17 09:22 Home Medications: Previous Rx's Medication Instructions Recorded Last Taken Type Lisinopril/Hydrochlorothiazide 1 tab PO QDAY #30 tab 09/04/16 Unknown Rx [Zestoretic 20-25 mg] Neomycin/Bacitracin/Polymyxinb 1 appful TP TID #1 bottle 09/04/16 Unknown Rx [Neosporin Antibiotic Ointment] traMADol [Ultram 50 MG tab] 50 mg PO Q6HR PRN #20 tablet 09/04/16 Unknown Rx Omeprazole 40 mg PO DAILY #14 capsule.dr 01/11/17 Unknown Rx Ondansetron [Zofran TAB] 4 mg PO Q8HR PRN #30 tablet 01/11/17 Unknown Rx Sucralfate [Carafate] 1 gm PO Q6HR #40 tablet 01/11/17 Unknown Rx Acetaminophen 500 mg PO Q8H PRN #30 tablet 08/27/17 Unknown Rx Ondansetron [Zofran Odt] 4 mg PO Q8HR PRN #20 tab.rapdis 08/27/17 Unknown Rx Sulfamethoxazole/Trimethoprim 1 each PO BID #14 tablet 08/27/17 Unknown Rx [Bactrim DS TAB] Clindamycin [Clindamycin CAP] 300 mg PO Q8H 7 Days cap 09/12/17 Unknown Rx HYDROcodone/APAP 5-325 [[place] 1 each PO Q6HR PRN #15 tablet 09/12/17 Unknown Rx 5/325] Ibuprofen [Motrin] 800 mg PO Q8HR PRN #14 tablet 09/12/17 Unknown Rx Allergies/Adverse Reactions: Allergies Allergy/AdvReac Type Severity Reaction Status Date / Time aspirin Allergy Shortness Verified 09/12/17 07:49 of Breath ED Review of Systems ROS: Stated complaint: BREAST/RIGHT ARM PAIN Other details as noted in HPI Comment: All other systems reviewed and negative ED Past Medical Hx - Past Medical History Hx Hypertension: Yes Additional medical history: obesity, IBS - Surgical History Additional Surgical History: c-sec x 2; scar tissue removal 2012 - Social History Smoking Status: Never Smoker Substance Use Type: None - Medications Home Medications: Home Medications Medication Instructions Recorded Confirmed Last Taken Type Lisinopril/Hydrochlorothiazide 1 tab PO QDAY #30 tab 09/04/16 Unknown Rx [Zestoretic 20-25 mg] Neomycin/Bacitracin/Polymyxinb 1 appful TP TID #1 bottle 09/04/16 Unknown Rx [Neosporin Antibiotic Ointment] traMADol [Ultram 50 MG tab] 50 mg PO Q6HR PRN #20 tablet 09/04/16 Unknown Rx Omeprazole 40 mg PO DAILY #14 capsule.dr 01/11/17 Unknown Rx Ondansetron [Zofran TAB] 4 mg PO Q8HR PRN #30 tablet 01/11/17 Unknown Rx Sucralfate [Carafate] 1 gm PO Q6HR #40 tablet 01/11/17 Unknown Rx Acetaminophen 500 mg PO Q8H PRN #30 tablet 08/27/17 Unknown Rx Ondansetron [Zofran Odt] 4 mg PO Q8HR PRN #20 tab.rapdis 08/27/17 Unknown Rx Sulfamethoxazole/Trimethoprim 1 each PO BID #14 tablet 08/27/17 Unknown Rx [Bactrim DS TAB] Clindamycin [Clindamycin CAP] 300 mg PO Q8H 7 Days cap 09/12/17 Unknown Rx HYDROcodone/APAP 5-325 [[place] 1 each PO Q6HR PRN #15 tablet 09/12/17 Unknown Rx 5/325] Ibuprofen [Motrin] 800 mg PO Q8HR PRN #14 tablet 09/12/17 Unknown Rx ED Physical Exam - General Limitations: No Limitations General appearance: alert, in no apparent distress - Head Head exam: Present: atraumatic, normocephalic - Eye Eye exam: Present: normal appearance - ENT ENT exam: Present: mucous membranes moist - Neck Neck exam: Present: normal inspection - Respiratory Respiratory exam: Present: normal lung sounds bilaterally. Absent: respiratory distress - Cardiovascular Cardiovascular Exam: Present: regular rate, normal rhythm. Absent: systolic murmur, diastolic murmur, rubs, gallop - GI/Abdominal GI/Abdominal exam: Present: soft, normal bowel sounds - Extremities Exam Extremities exam: Present: normal inspection - Back Exam Back exam: Present: normal inspection - Neurological Exam Neurological exam: Present: alert, oriented X3 - Psychiatric Psychiatric exam: Present: normal affect, normal mood - Skin Skin exam: Present: warm, dry, intact, normal color, other (patient does have some swelling and firmness of the skin consistent with induration at the right nipple areola). Absent: rash ED Course Vital Signs 09/12/17 07:49 Temperature 98.3 F Pulse Rate 82 Respiratory 16 Rate Blood Pressure 144/88 O2 Sat by Pulse 99 Oximetry ED Medical Decision Making - Medical Decision Making Patient to deep to be started on antibiotics for mastitis as well as follow-up with breast surgery. Critical care attestation.: If time is entered above; I have spent that time in minutes in the direct care of this critically ill patient, excluding procedure time. ED Disposition Clinical Impression: Mastitis Disposition: DC-01 TO HOME OR SELFCARE Is pt being admited?: No Does the pt Need Aspirin: No Condition: Stable Instructions: Mastitis (ED), Breast Self-exam (ED) Referrals: MITA CEDEÑO MD [Staff Physician] - 3-5 Days
[2017-09-12 09:45] VITALS: BP 141/82
== END 2017-09-12 09:44 | disposition home or self-care (01) ==
LOC: ED 07:37
DX: N61.0 Mastitis without abscess (principal); I10 Essential (primary) hypertension; Z79.82 Long term (current) use of aspirin
CPT/HCPCS: 99282

== ENCOUNTER 2020-03-01 17:17 | Emergency (ER) | payer MEDICARE ==
--- NOTE | 2020-03-01 19:15 | Event Note ---
ED Screening Note Date of service: 03/01/20 Time: 19:12 ED Screening Note: 39-year-old morbid obese female presents to the emergency room complaining of left side pain for the last 3 to 4 days and reports that the pain is worsening. Patient denies any dysuria denies any vaginal discharge. Denies any nausea no vomiting no diarrhea. Patient reports that the pain feels like it is pushing and pulling and worse with walking. Patient reports she has had a gastric sleeve done June 2019. Patient states that she had dilatation of her stomach in December. Patient reports that she has lost greater than 150 pounds. Last menstrual period was 02/27/2020. This initial assessment/diagnostic orders/clinical plan/treatment(s) is/are subject to change based on patients health status, clinical progression and re- assessment by fellow clinical providers in the ED. Further treatment and workup at subsequent clinical providers discretion. Patient/guardian urged not to elope from the ED as their condition may be serious if not clinically assessed and managed. Initial orders include:
[2020-03-01 19:48] LABS: Basophils % (Auto) 0.2 % (0.0-1.8); Eosinophils # (Auto) 0.1 K/mm3 (0.0-0.4); Eosinophils % (Auto) 0.7 % (0.0-4.3); Hematocrit 35.3 % (30.3-42.9); Hemoglobin 11.8 gm/dl (10.1-14.3); Lymphocytes # (Auto) 2.9 K/mm3 (1.2-5.4); Lymphocytes % (Auto) 32.3 % (13.4-35.0); Mean Corpuscular HGB Conc 34 % (30-34); Mean Corpuscular Volume 99 fl (79-97); Monocytes # (Auto) 0.9 K/mm3 (0.0-0.8); Monocytes % (Auto) 9.9 % (0.0-7.3); Platelet Count 294 K/mm3 (140-440); Red Blood Count 3.57 M/mm3 (3.65-5.03); Red Cell Distribution Width 14.7 % (13.2-15.2)
[2020-03-01 20:03] LABS: Albumin 3.8 g/dL (3.9-5); BUN/Creatinine Ratio 11; Blood Urea Nitrogen 9 mg/dL (7-17); Calcium 8.7 mg/dL (8.4-10.2); Hemolysis Index 5
[2020-03-01 20:04] LABS: Alanine Aminotransferase < 5 units/L (7-56)
[2020-03-01 21:22] VITALS: BP 148/90
== END 2020-03-01 21:22 | disposition left against medical advice (07) ==
LOC: ED 17:17
DX: R10.9 Unspecified abdominal pain (principal); Z53.21 Procedure and treatment not carried out due to patient leaving prior to being seen by health care provider
CPT/HCPCS: 36415; 80053; 83690; 84702; 85025

== ENCOUNTER 2020-06-24 14:21 | Emergency (ER) | payer MEDICARE ==
[2020-06-24] MEDS ORDERED: MORPHINE 4 MG/1 ML INJ IV ONE (16:54)
[2020-06-24] MEDS ORDERED: ONDANSETRON 4 MG/2 ML INJ IV ONE (16:54)
[2020-06-24 17:16] LABS: Bilirubin,Urine NEG (Negative); Blood,Urine NEG (Negative); Color,Urine Yellow (Yellow); Mucus,Urine 3+ /HPF; Protein,Urine <15 mg/dL mg/dL (Negative)
[2020-06-24 17:17] LABS: HCG Qualitative,Urine Negative (Negative)
[2020-06-24 17:34] LABS: Basophils % (Auto) 0.2 % (0.0-1.8); Eosinophils % (Auto) 0.4 % (0.0-4.3); Hematocrit 33.8 % (30.3-42.9); Hemoglobin 11.4 gm/dl (10.1-14.3); Lymphocytes # (Auto) 2.2 K/mm3 (1.2-5.4); Lymphocytes % (Auto) 28.1 % (13.4-35.0); Mean Corpuscular HGB Conc 34 % (30-34); Mean Corpuscular Volume 95 fl (79-97); Monocytes # (Auto) 0.6 K/mm3 (0.0-0.8); Monocytes % (Auto) 7.8 % (0.0-7.3); Platelet Count 306 K/mm3 (140-440); Red Blood Count 3.57 M/mm3 (3.65-5.03); Red Cell Distribution Width 15.2 % (13.2-15.2)
[2020-06-24 17:58] LABS: Albumin 3.3 g/dL (3.9-5); Blood Urea Nitrogen 10 mg/dL (7-17); Calcium 8.5 mg/dL (8.4-10.2); Hemolysis Index 7
[2020-06-24 18:02] LABS: Alanine Aminotransferase < 5 units/L (7-56); BUN/Creatinine Ratio 14
--- NOTE | 2020-06-24 19:54 | Cat Scan Report ---
CT ABDOMEN AND PELVIS WITH CONTRAST INDICATION: L flank and LLQ pain CONTRAST: 100 cc Omnipaque 300 IV COMPARISON: 09/08/[address] scans at this location are performed using CT dose reduction for ALARA by means of automated e xposure control. NOTE: Resolution is decreased and artifact is introduced by the patient's size. FINDINGS: Lung bases are clear. Gallbladder has been removed. No significant biliary dilatation is se en. Liver shows fatty infiltration and is enlarged with a length of 22 cm. No focal lesions are obvio us. Spleen is not enlarged. No abdominal masses are seen. Gastric bypass changes are noted. Mild diff use subcutaneous edema is seen. Only a trace of free fluid is seen in the abdomen. No lymphadenopathy is seen. No urinary or bowel obstructive changes are noted. Appendix appears within normal limits. N o adnexal masses are seen. Small physiologic type left ovarian cyst is noted. No significant abdomina l wall herniation is seen. IMPRESSION: No acute abnormalities are seen Signer Name: Clemente Molina MD Signed: 06/24/2020 7:50 PM Workstation Name: [id number]
--- NOTE | 2020-06-24 19:57 | Emergency Department Report ---
ED General Adult HPI - General Chief complaint: Urogenital-Female Stated complaint: ABD PAIN Time Seen by Provider: 06/24/20 16:29 Source: patient Mode of arrival: Ambulatory Limitations: No Limitations - History of Present Illness Initial comments: 40-year-old -[place] female patient presents with complaints of left- sided abdominal pain and flank pain intermittently since February. Past medical history includes hypertension and a gastric sleeve. Patient states she is still following with her GI doctor, however she has not discussed this pain she has been having. She rates her current pain as a 10/10 in severity and describes it as aching. She denies any nausea/vomiting/diarrhea, constipation, hematochezia/melena, urinary symptoms, or vaginal discharge. No fever/chills/sweats, chest pain, or shortness of breath per patient. Pain w orsening over the past 3 days. Severity scale (0 -10): 9 - Related Data Previous Rx's Medication Instructions Recorded Last Taken Type Lisinopril/Hydrochlorothiazide 1 tab PO QDAY #30 tab 09/04/16 Unknown Rx [Zestoretic 20-25 mg] Neomycin/Bacitracin/Polymyxinb 1 appful TP TID #1 bottle 09/04/16 Unknown Rx [Neosporin Antibiotic Ointment] traMADoL [Ultram 50 MG tab] 50 mg PO Q6HR PRN #20 tablet 09/04/16 Unknown Rx Omeprazole 40 mg PO DAILY #14 capsule. 01/11/17 Unknown Rx Ondansetron [Zofran TAB] 4 mg PO Q8HR PRN #30 tablet 01/11/17 Unknown Rx Sucralfate [Carafate] 1 gm PO Q6HR #40 tablet 01/11/17 Unknown Rx Acetaminophen 500 mg PO Q8H PRN #30 tablet 08/27/17 Unknown Rx Ondansetron [Zofran Odt] 4 mg PO Q8HR PRN #20 tab.rapdis 08/27/17 Unknown Rx Sulfamethoxazole/Trimethoprim 1 each PO BID #14 tablet 08/27/17 Unknown Rx [Bactrim DS TAB] Clindamycin [Clindamycin CAP] 300 mg PO Q8H 7 Days cap 09/12/17 Unknown Rx HYDROcodone/APAP 5-325 [[place] 1 each PO Q6HR PRN #15 tablet 09/12/17 Unknown Rx 5/325] Ibuprofen [Motrin] 800 mg PO Q8HR PRN #14 tablet 09/12/17 Unknown Rx Famotidine [Pepcid] 40 mg PO QHS #14 tablet 09/08/19 Unknown Rx Hyoscyamine Subl [Levsin Sl 0.125 0.125 mg SL Q6HR PRN #7 tab 09/08/19 Unknown Rx TAB] Promethazine HCl [Phenergan SUPPOS] 25 mg RC Q8HR PRN #10 supp.rect 09/08/19 Unknown Rx cephALEXin [Keflex] 500 mg PO BID 7 Days #14 cap 09/08/19 Unknown Rx traMADoL [Ultram 50 MG tab] 50 mg PO Q6HR PRN #12 tablet 06/24/20 Unknown Rx Allergies Allergy/AdvReac Type Severity Reaction Status Date / Time aspirin Allergy Shortness Verified 09/08/19 18:42 of Breath ED Review of Systems ROS: Stated complaint: ABD PAIN Other details as noted in HPI Constitutional: denies: chills, diaphoresis, fever, malaise, weakness Respiratory: denies: cough, shortness of breath Cardiovascular: denies: chest pain Gastrointestinal: abdominal pain. denies: diarrhea, constipation Genitourinary: denies: urgency, dysuria, frequency, hematuria, discharge, abnormal menses, dyspareunia Musculoskeletal: as per HPI Neurological: denies: headache Hematological/Lymphatic: denies: swollen glands ED Past Medical Hx - Past Medical History Previous Medical History?: Yes Hx Hypertension: Yes Additional medical history: obesity, IBS - Surgical History Hx Cholecystectomy: Yes Additional Surgical History: c-sec x 2; scar tissue removal 2013 GASTRIC SLEEVE - Social History Smoking Status: Never Smoker Substance Use Type: Alcohol, Marijuana - Medications Home Medications: Home Medications Medication Instructions Recorded Confirmed Last Taken Type Lisinopril/Hydrochlorothiazide 1 tab PO QDAY #30 tab 09/04/16 Unknown Rx [Zestoretic 20-25 mg] Neomycin/Bacitracin/Polymyxinb 1 appful TP TID #1 bottle 09/04/16 Unknown Rx [Neosporin Antibiotic Ointment] traMADoL [Ultram 50 MG tab] 50 mg PO Q6HR PRN #20 tablet 09/04/16 Unknown Rx Omeprazole 40 mg PO DAILY #14 rakesh. 01/11/17 Unknown Rx Ondansetron [Zofran TAB] 4 mg PO Q8HR PRN #30 tablet 01/11/17 Unknown Rx Sucralfate [Carafate] 1 gm PO Q6HR #40 tablet 01/11/17 Unknown Rx Acetaminophen 500 mg PO Q8H PRN #30 tablet 08/27/17 Unknown Rx Ondansetron [Zofran Odt] 4 mg PO Q8HR PRN #20 tab.rapdis 08/27/17 Unknown Rx Sulfamethoxazole/Trimethoprim 1 each PO BID #14 tablet 08/27/17 Unknown Rx [Bactrim DS TAB] Clindamycin [Clindamycin CAP] 300 mg PO Q8H 7 Days cap 09/12/17 Unknown Rx HYDROcodone/APAP 5-325 [[place] 1 each PO Q6HR PRN #15 tablet 09/12/17 Unknown Rx 5/325] Ibuprofen [Motrin] 800 mg PO Q8HR PRN #14 tablet 09/12/17 Unknown Rx Famotidine [Pepcid] 40 mg PO QHS #14 tablet 09/08/19 Unknown Rx Hyoscyamine Subl [Levsin Sl 0.125 0.125 mg SL Q6HR PRN #7 tab 09/08/19 Unknown Rx TAB] Promethazine HCl [Phenergan SUPPOS] 25 mg RC Q8HR PRN #10 supp.rect 09/08/19 Unknown Rx cephALEXin [Keflex] 500 mg PO BID 7 Days #14 cap 09/08/19 Unknown Rx traMADoL [Ultram 50 MG tab] 50 mg PO Q6HR PRN #12 tablet 06/24/20 Unknown Rx ED Physical Exam - General Limitations: No Limitations General appearance: alert, in no apparent distress - Head Head exam: Present: atraumatic, normocephalic - Eye Eye exam: Present: normal appearance. Absent: scleral icterus - ENT ENT exam: Present: normal exam - Respiratory Respiratory exam: Absent: respiratory distress - Cardiovascular Cardiovascular Exam: Present: regular rate, normal rhythm. Absent: systolic murmur, diastolic murmur, rubs, gallop - GI/Abdominal GI/Abdominal exam: Present: soft, tenderness (LLQ, L flank). Absent: distended - Extremities Exam Extremities exam: Present: full ROM - Back Exam Back exam: Present: normal inspection - Neurological Exam Neurological exam: Present: alert, oriented X3, normal gait - Psychiatric Psychiatric exam: Present: normal affect, normal mood - Skin Skin exam: Present: warm, dry, intact, normal color. Absent: rash ED Course Vital Signs 06/24/20 06/24/20 06/24/20 14:26 19:59 20:15 Temperature 98.3 F Pulse Rate 61 54 L Respiratory 16 18 16 Rate Blood Pressure 174/99 164/96 [Right] O2 Sat by Pulse 96 100 Oximetry ED Medical Decision Making - Lab Data Result diagrams: 06/24/20 17:13 06/24/20 17:13 - Radiology Data Radiology results: report reviewed CT ABDOMEN AND PELVIS WITH CONTRAST INDICATION: L flank and LLQ pain CONTRAST: 100 cc Omnipaque 300 IV COMPARISON: 09/08/[address] scans at this location are performed using CT dose reduction for ALARA by means of automated exposure control. NOTE: Resolution is decreased and artifact is introduced by the patient's size. FINDINGS: Lung bases are clear. Gallbladder has been removed. No significant biliary dilatation is seen. Liver shows fatty infiltration and is enlarged with a length of 22 cm. No focal lesions are obvious. Spleen is not enlarged. No abdominal masses are seen. Gastric bypass changes are noted. Mild diffuse subcutaneous edema is seen. Only a trace of free fluid is seen in the abdomen. No lymphadenopathy is seen. No urinary or bowel obstructive changes are noted. Appendix appears within normal limits. No adnexal masses are seen. Small physiologic type left ovarian cyst is noted. No significant abdominal wall herniation is seen. IMPRESSION: No acute abnormalities are seen - Medical Decision Making 40-year-old -[place] female patient presents with complaints of left- sided abdominal pain and flank pain intermittently since February. Past medical history includes hypertension and a gastric sleeve. Patient states she is still following with her GI doctor, however she has not discussed this pain she has been having. She rates her current pain as a 10/10 in severity and describes it as aching. She denies any nausea/vomiting/diarrhea, constipation, hematochezia/melena, urinary symptoms, or vaginal discharge. No fever/chills/sweats, chest pain, or shortness of breath per patient. Pain worsening over the past 3 days. No significant abnormalities noted on labs, however given 10 out of 10 pain and tenderness on abdomen CT abdomen was done and is negative for any acute fin dings. Patient's pain is controlled and her vitals are within normal limits. Blood pressure noted to be somewhat elevated, patient states she is compliant with her blood pressure medication and has a follow-up with her primary care doctor coming up soon. She is well-appearing and she is stable for discharge home. Patient to follow-up with her GI doctor in the next few days concerning this pain. Strict return precautions discussed in detail with patient who verbalizes understanding. Critical care attestation.: If time is entered above; I have spent that time in minutes in the direct care of this critically ill patient, excluding procedure time. ED Disposition Clinical Impression: Chronic abdominal pain Disposition: DC-01 TO HOME OR SELFCARE Is pt being admited?: No Condition: Stable Instructions: Abdominal Pain, Adult Prescriptions: traMADoL [Ultram 50 MG tab] 50 mg PO Q6HR PRN #12 tablet PRN Reason: Pain Referrals: [facility] [Provider Group] - 2-3 Days
[2020-06-25 00:11] VITALS: BP 164/96
== END 2020-06-24 20:15 | disposition home or self-care (01) ==
LOC: ED 14:21
DX: R10.9 Unspecified abdominal pain (principal); G89.29 Other chronic pain; I10 Essential (primary) hypertension; F12.10 Cannabis abuse, uncomplicated; Z90.49 Acquired absence of other specified parts of digestive tract; Z79.899 Other long term (current) drug therapy
CPT/HCPCS: 36415; 74177; 80053; 81001; 81025; 83690; 85025; 96372; 99284; J2270; J2405; Q9967

== ENCOUNTER 2020-12-25 20:07 | Observation (INO) | payer MEDICARE ==
[2020-12-25] MEDS ORDERED: ASPIRIN 325 MG TAB PO ONE (21:14)
--- NOTE | 2020-12-25 21:48 | XRay Report ---
XR chest routine 2V INDICATION / CLINICAL INFORMATION: chest pain. COMPARISON: None available. FINDINGS: SUPPORT DEVICES: None. HEART /PULMONARY VASCULATURE: No significant abnormality. LUNGS / PLEURA: No significant pulmonary or pleural abnormality. No pneumothorax. ADDITIONAL FINDINGS: No significant additional findings. IMPRESSION: 1. No acute findings. Signer Name: Geovani Oilver MD Signed: 12/25/2020 9:43 PM Workstation Name: [id number]
[2020-12-25] MEDS ORDERED: SODIUM CHLORIDE 0.9% 500 ML 500 ML IV ONE (21:55)
[2020-12-25] MEDS ORDERED: NITROGLYCERIN 0.4 MG TAB SUBL SL PRN (21:55)
[2020-12-25] MEDS ORDERED: FAMOTIDINE 20 MG/2 ML INJ IV ONE (21:55)
[2020-12-25] MEDS ORDERED: METOCLOPRAMIDE 10 MG/2 ML INJ IV ONE (21:57)
--- NOTE | 2020-12-25 21:57 | Emergency Department Report ---
ED General Adult HPI - General Chief complaint: Chest Pain Stated complaint: CHEST PAIN PUI?: No Time Seen by Provider: 12/25/20 21:17 Source: patient, EMS ([facility]), RN notes reviewed, old records reviewed Mode of arrival: Stretcher Limitations: No Limitations - History of Present Illness Initial comments: The patient is a 40-year-old female. She has a history of body mass index of 41.7, and also reports a history of HIV positive, currently on antiviral therapy. Reports viral load undetectable, does not know CD4 count. Presents to the ER today with a complaint of "seeing stars", headache which is frontal, present for the past couple days, not sudden, not thunderclap in nature associated with intermittent left arm and left leg weakness and numbness, this has been present itself intermittently over the past few weeks, and central chest pain and pressure. At the moment, the patient is pain-free, with the exception of mild headache. The patient denies posterior neck pain, loss of vision, but does describe blurry vision, travel, surgery, immobilization, leg pain, leg swelling DVT/PE risk factors, and oral contraceptive use. Reports strong family history of heart disease in both parents. No recent cardiac risk ratification. She is COVID-19 vaccinated. Denies Covid symptoms. She occasionally consumes recreational marijuana. Chest pressure central, does not radiate to the back, arms and neck. It is now resolved. Left-sided weakness and numbness intermittent over the past few weeks. She repo rts her outpatient provider told her it was likely "anxiety." She is not had any formal cardiac risk ratification that she is aware of, or neurologic evaluation. -: Gradual, hour(s), week(s) Location: head, chest, left, upper extremity, lower extremity Quality: other Consistency: other Improves with: other Worsens with: other Associated Symptoms: other - Related Data Previous Rx's Medication Instructions Recorded Last Taken Type Lisinopril/Hydrochlorothiazide 1 tab PO QDAY #30 tab 09/04/16 Unknown Rx [Zestoretic 20-25 mg] Neomycin/Bacitracin/Polymyxinb 1 appful TP TID #1 bottle 09/04/16 Unknown Rx [Neosporin Antibiotic Ointment] traMADoL [Ultram 50 MG tab] 50 mg PO Q6HR PRN #20 tablet 09/04/16 Unknown Rx Omeprazole 40 mg PO DAILY #14 capsule.dr 01/11/17 Unknown Rx Ondansetron [Zofran TAB] 4 mg PO Q8HR PRN #30 tablet 01/11/17 Unknown Rx Sucralfate [Carafate] 1 gm PO Q6HR #40 tablet 01/11/17 Unknown Rx Acetaminophen 500 mg PO Q8H PRN #30 tablet 08/27/17 Unknown Rx Ondansetron [Zofran Odt] 4 mg PO Q8HR PRN #20 tab.rapdis 08/27/17 Unknown Rx Sulfamethoxazole/Trimethoprim 1 each PO BID #14 tablet 08/27/17 Unknown Rx [Bactrim DS TAB] Clindamycin [Clindamycin CAP] 300 mg PO Q8H 7 Days cap 09/12/17 Unknown Rx HYDROcodone/APAP 5-325 [[place] 1 each PO Q6HR PRN #15 tablet 09/12/17 Unknown Rx 5/325] Ibuprofen [Motrin] 800 mg PO Q8HR PRN #14 tablet 09/12/17 Unknown Rx Famotidine [Pepcid] 40 mg PO QHS #14 tablet 09/08/19 Unknown Rx Hyoscyamine Subl [Levsin Sl 0.125 0.125 mg SL Q6HR PRN #7 tab 09/08/19 Unknown Rx TAB] Promethazine HCl [Phenergan SUPPOS] 25 mg RC Q8HR PRN #10 supp.rect 09/08/19 Unknown Rx cephALEXin [Keflex] 500 mg PO BID 7 Days #14 cap 09/08/19 Unknown Rx traMADoL [Ultram 50 MG tab] 50 mg PO Q6HR PRN #12 tablet 06/24/20 Unknown Rx Allergies Allergy/AdvReac Type Severity Reaction Status Date / Time aspirin Allergy Shortness Verified 12/25/20 20:40 of Breath ED Review of Systems ROS: Stated complaint: CHEST PAIN Other details as noted in HPI Constitutional: denies: fever Eyes: vision change ENT: denies: dental pain Respiratory: denies: cough Cardiovascular: chest pain Gastrointestinal: nausea. denies: abdominal pain Genitourinary: denies: dysuria Musculoskeletal: denies: back pain Neurological: headache, weakness, numbness, paresthesias Psychiatric: anxiety Hematological/Lymphatic: denies: easy bleeding ED Past Medical Hx - Past Medical History Hx Hypertension: Yes Hx HIV: Yes Additional medical history: obesity, IBS - Surgical History Hx Cholecystectomy: Yes Additional Surgical History: c-sec x 2; scar tissue removal 2012 GASTRIC SLEEVE - Social History Smoking Status: Never Smoker Substance Use Type: Alcohol, Marijuana - Medications Home Medications: Home Medications Medication Instructions Recorded Confirmed Last Taken Type Lisinopril/Hydrochlorothiazide 1 tab PO QDAY #30 tab 09/04/16 Unknown Rx [Zestoretic 20-25 mg] Neomycin/Bacitracin/Polymyxinb 1 appful TP TID #1 bottle 09/04/16 Unknown Rx [Neosporin Antibiotic Ointment] traMADoL [Ultram 50 MG tab] 50 mg PO Q6HR PRN #20 tablet 09/04/16 Unknown Rx Omeprazole 40 mg PO DAILY #14 capsule.dr 01/11/17 Unknown Rx Ondansetron [Zofran TAB] 4 mg PO Q8HR PRN #30 tablet 01/11/17 Unknown Rx Sucralfate [Carafate] 1 gm PO Q6HR #40 tablet 01/11/17 Unknown Rx Acetaminophen 500 mg PO Q8H PRN #30 tablet 08/27/17 Unknown Rx Ondansetron [Zofran Odt] 4 mg PO Q8HR PRN #20 tab.rapdis 08/27/17 Unknown Rx Sulfamethoxazole/Trimethoprim 1 each PO BID #14 tablet 08/27/17 Unknown Rx [Bactrim DS TAB] Clindamycin [Clindamycin CAP] 300 mg PO Q8H 7 Days cap 09/12/17 Unknown Rx HYDROcodone/APAP 5-325 [[place] 1 each PO Q6HR PRN #15 tablet 09/12/17 Unknown Rx 5/325] Ibuprofen [Motrin] 800 mg PO Q8HR PRN #14 tablet 09/12/17 Unknown Rx Famotidine [Pepcid] 40 mg PO QHS #14 tablet 09/08/19 Unknown Rx Hyoscyamine Subl [Levsin Sl 0.125 0.125 mg SL Q6HR PRN #7 tab 09/08/19 Unknown Rx TAB] Promethazine HCl [Phenergan SUPPOS] 25 mg RC Q8HR PRN #10 supp.rect 09/08/19 Unknown Rx cephALEXin [Keflex] 500 mg PO BID 7 Days #14 cap 09/08/19 Unknown Rx traMADoL [Ultram 50 MG tab] 50 mg PO Q6HR PRN #12 tablet 06/24/20 Unknown Rx ED Physical Exam - General Limitations: No Limitations General appearance: alert, in no apparent distress - Head Head exam: Present: atraumatic, normocephalic - Eye Eye exam: Present: normal appearance, PERRL, EOMI, other (Visual acuity intact to finger counting, color perception, reading at a close distance). Absent: nystagmus - ENT ENT exam: Present: normal exam, normal orophraynx, mucous membranes moist, normal external ear exam - Neck Neck exam: Present: normal inspection, full ROM. Absent: tenderness, meningismus - Respiratory Respiratory exam: Present: normal lung sounds bilaterally. Absent: respiratory distress, wheezes, rales, rhonchi, stridor, decreased breath sounds - Cardiovascular Cardiovascular Exam: Present: regular rate, normal rhythm, normal heart sounds. Absent: bradycardia, tachycardia, irregular rhythm, systolic murmur, diastolic murmur, rubs, gallop - GI/Abdominal GI/Abdominal exam: Present: soft. Absent: distended, tenderness, guarding, rebound, rigid, pulsatile mass - Extremities Exam Extremities exam: Present: normal inspection, full ROM, other (2+ pulses noted in the bilateral upper and lower extremities. There is no palpable cord. negative Homans sign. Muscular compartments are soft. The pelvis is stable.). Absent: pedal edema, calf tenderness - Back Exam Back exam: Present: normal inspection, full ROM. Absent: tenderness, CVA tenderness (R), CVA tenderness (L), paraspinal tenderness, vertebral tenderness - Neurological Exam Neurological exam: Present: alert, oriented X3, normal gait, other (There is no facial droop. The tongue is midline. Extraocular movements are intact bilaterally. There is 5 out of 5 strength in bilateral upper and lower extremities. Sensation is intact to light touch bilateral upper and lower extremities. There is no past-pointing. There is no pronator drift.). Absent: motor sensory deficit - Psychiatric Psychiatric exam: Present: anxious - Skin Skin exam: Present: warm, dry, intact, normal color. Absent: rash ED Course Vital Signs 12/25/20 20:38 Temperature 98.6 F Pulse Rate 66 Respiratory 16 Rate Blood Pressure 144/86 [Left] O2 Sat by Pulse 99 Oximetry - Reevaluation(s) Reevaluation #1: 12/25/20 23:37 Differential diagnosis, including but not limited to: Migraine headache, tension headache, cluster headache, GERD, gastritis, hiatal hernia, pneumonia, acute coronary syndrome, aortic dissection, carotid dissection subacute stroke, TIA, conversion disorder Assessment and plan: 40-year-old female with multiple complaints, including nonspecific visual disturbance, seeing stars, headache, intermittent left-sided weakness and numbness over the past few weeks, and nonspecific chest pain. The patient is not currently tachycardic, tachypneic or hypoxic. She is low risk by Wells criteria for pulmonary embolism, as she is currently PERC negative. She is moderate risk for major adverse cardiac event as per heart score. She has a GCS of 15, an NIH score of 0 at this time. Given the aforementioned, and duration of symptoms, she is not a TPA candidate. We will obtain CT scan of the brain, and CT angiogram of the head and neck; in the unlikely event that an aortic dissection is present, a sending arch of aorta should be visualized on CT angiogram of the neck, and will also visualize carotid arteries. Patient is intolerant of aspirin, so if no acute findings noted, we will medicate with Plavix. Contacted neurology on-call, Dr. Hernández. Discussed the patient's history, physical, clinical impression and plan of care. He agrees with the aforementioned. Admission is recommended. I also discussed this with the patient. She is agreeable to this plan of care. Reassess after data points have resulted. All questions answered with the patient's permission. 12/25/20 23:47 CT scan of the brain negative for acute findings. CT angiogram head and neck negative for acute findings. Plavix ordered. Hospital physician, Dr. Delvis Moya to admit with [employer] Anna Abernathy plavix ordered ED Medical Decision Making - Lab Data Result diagrams: 12/25/20 21:18 12/25/20 21:18 Vital Signs 12/25/20 20:38 Temperature 98.6 F Pulse Rate 66 Respiratory 16 Rate Blood Pressure 144/86 [Left] O2 Sat by Pulse 99 Oximetry Lab Results 12/25/20 12/25/20 12/25/20 Range/Units 21:18 21:18 22:20 WBC 8.4 (4.5-11.0) K/mm3 RBC 3.48 L (3.65-5.03) M/mm3 Hgb 10.2 (10.1-14.3) gm/dl Hct 32.4 (30.3-42.9) % MCV 93 (79-97) fl MCH 29 (28-32) pg MCHC 32 (30-34) % RDW 14.8 (13.2-15.2) % Plt Count 288 (140-440) K/mm3 Lymph % (Auto) 27.5 (13.4-35.0) % [place] % (Auto) 9.5 H (0.0-7.3) % Eos % (Auto) 0.5 (0.0-4.3) % Baso % (Auto) 0.2 (0.0-1.8) % Lymph # (Auto) 2.3 (1.2-5.4) K/mm3 [place] # (Auto) 0.8 (0.0-0.8) K/mm3 Eos # (Auto) 0.0 (0.0-0.4) K/mm3 Baso # (Auto) 0.0 (0.0-0.1) K/mm3 Seg Neutrophils % 62.3 (40.0-70.0) % Seg Neutrophils # 5.3 (1.8-7.7) K/mm3 Sodium 138 (137-145) mmol/L Potassium 4.2 (3.6-5.0) mmol/L Chloride 104.2 (98-107) mmol/L Carbon Dioxide 24 (22-30) mmol/L Anion Gap 14 mmol/L BUN 16 (7-17) mg/dL Creatinine 0.8 (0.6-1.2) mg/dL Estimated GFR > 60 ml/min BUN/Creatinine Ratio 20 % Glucose 81 (65-100) mg/dL Calcium 8.4 (8.4-10.2) mg/dL Total Bilirubin 0.20 (0.1-1.2) mg/dL AST 10 (5-40) units/L ALT 5 L (7-56) units/L Alkaline Phosphatase 63 (35-129) units/L Troponin T < 0.010 (0.00-0.029) ng/mL Total Protein 7.4 (6.3-8.2) g/dL Albumin 3.6 L (3.9-5) g/dL Albumin/Globulin Ratio 0.9 % HCG, Quant < 2 (0-4) mIU/mL - EKG Data -: EKG Interpreted by Ak EKG shows normal: sinus rhythm Rate: normal - EKG Data When compared to previous EKG there are: previous EKG unavailable 12/25/20 23:30 The EKG is interpreted at 21: 56 Sinus rhythm, rate 78 bpm. There is a borderline rightward axis deviation. There is a normal P wave axis. The QTC is 477 ms. There is first-degree AV block, AZ interval is 208 ms. This is an abnormal EKG. This is not a STEMI. When compared to prior EKG from 09/03/2016, rightward axis deviation appears to be new. - Radiology Data Radiology results: pending, report reviewed, image reviewed XR chest routine 2V INDICATION / CLINICAL INFORMATION: chest pain. COMPARISON: None available. FINDINGS: SUPPORT DEVICES: None. HEART /PULMONARY VASCULATURE: No significant abnormality. LUNGS / PLEURA: No significant pulmonary or pleural abnormality. No pneumothorax. ADDITIONAL FINDINGS: No significant additional findings. IMPRESSION: 1. No acute findings. Signer Name: Geovani Oliver MD Signed: 12/25/2020 8:43 PM Workstation Name: [id number] . CT head without contrast INDICATION : gutierrez, blurry vision, left sided TIA W CHEST PAIN. TECHNIQUE: Axial imaging performed from the skull apex through the skull base without the use of contrast. All CT scans at this location are performed using CT dose reduction for ALARA by means of automated exposure control. COMPARISON: None FINDINGS: Parenchyma: Negative for mass, stroke or hemorrhage. Ventricles: Ventricles are normal in size and appear symmetric. Soft tissues: Soft tissues including the orbits appear normal. Bones: No acute osseous abnormality. Sinuses: Sinuses and mastoid air cells are clear. IMPRESSION: No acute abnormality. Signer Name: Arturo Ferrera MD Signed: 12/25/2020 10:35 PM Workstation Name: [id number] CTA NECK WITH CONTRAST 12/25/2020 INDICATION / CLINICAL INFORMATION: gutierrez, blurry vision, left sided TIA W CHEST PAIN. COMPARISON: None. TECHNIQUE: Routine CTA of the neck is performed. 3-D/MIP reformats were postprocessed. Percentage stenosis is determined by direct quantitative measurements of diseased internal carotid artery diameter compared with normal distal internal carotid artery reference segments or by criteria similar to NASCET where applicable. All CT scans at this location are performed using CT dose reduction for ALARA by means of automated exposure control. CONTRAST: 100 ml of contrast FINDINGS: Carotid bifurcations: No significant abnormality Carotid arteries: No significant abnormality. Cervical vertebral arteries: No significant abnormality. Aortic arch: No significant abnormality. None. IMPRESSION: No significant abn ormality. Signer Name: Garrison Low MD Signed: 12/25/2020 10:40 PM Workstation Name: [id number] CTA HEAD WITH CONTRAST 12/25/2020 HISTORY: gutierrez, blurry vision, left sided TIA W CHEST PAIN. COMPARISON: None. TECHNIQUE: All CT scans at this location are performed using CT dose reduction for ALARA by means of automated exposure control.. 3-D/MIP reformats postprocessed. Percentage stenosis is determined by direct quantitative measurements of diseased internal carotid artery diameter compared with normal distal internal carotid artery reference segments or by criteria similar to NASCET where applicable. CONTRAST: 100 ml of Omnipaque 350 FINDINGS: CTA HEAD: Intracranial vertebral arteries: No significant abnormality. Basilar artery: No significant abnormality. Posterior cerebral arteries: No significant abnormality. Intracranial internal carotid arteries: No significant abnormality. Anterior cerebral arteries: No significant abnormality. Middle cerebral arteries: No significant abnormality. Dural venous sinuses:Not optimally opacified. No significant abnormality. Additional find ings: None. IMPRESSION: 1. No significant abnormality. Signer Name: Garrison Low MD Signed: 12/25/2020 10:43 PM Workstation Name: [id number] Critical care attestation.: If time is entered above; I have spent that time in minutes in the direct care of this critically ill patient, excluding procedure time. ED Disposition Clinical Impression: TIA (transient ischemic attack), Acute chest pain, Headache Disposition: ADMITTED INPATIENT Is pt being admited?: Yes Does the pt Need Aspirin: No Condition: Good Instructions: Chest Pain (ED) Heart Score - HEART Score History: Slightly suspicious EKG: Non-specific Age: 45-65 Risk factors: > 3 risk factors or hx of atherosclerotic disease Troponin: < normal limit HEART Score: 4 - EKG Read Time Time EKG Completed: 21:56 EKG Read Time: 21:56 - Critical Actions Critical Actions: 4-6 pts:12-16.6% risk of adverse cardiac event. Should be admitted - Assessment Assessment Interval: Baseline - Level of Consciousness 1a. Level of Consciousness: alert/keenly responsive - LOC Questions 1b. LOC Questions: answers both correctly - LOC Command 1c. LOC Commands: performs tasks correctly - Best Gaze 2. Best Gaze: normal - Visual 3. Visual: no visual loss - Facial Palsy 4. Facial Palsy: normal symmetrical movement - Motor Arm 5a. Motor Arm Left: no drift 5b. Motor Arm Right: no drift - Motor Leg 6a. Motor Leg Left: no drift 6b. Motor Leg Right: no drift - Limb Ataxia 7. Limb Ataxia: absent - Sensory 8. Sensory: normal - Best Language 9. Best Language: no aphasia - Dysarthria 10. Dysarthria: normal - Extinction and Inattention 11. Extinction/Inattention: no abnormality - Scoring Total Score: 0 Stroke Severity: No Stroke Symptoms
[2020-12-25 22:00] LABS: Basophils % (Auto) 0.2 % (0.0-1.8); Eosinophils % (Auto) 0.5 % (0.0-4.3); Hematocrit 32.4 % (30.3-42.9); Hemoglobin 10.2 gm/dl (10.1-14.3); Lymphocytes # (Auto) 2.3 K/mm3 (1.2-5.4); Lymphocytes % (Auto) 27.5 % (13.4-35.0); Mean Corpuscular HGB Conc 32 % (30-34); Mean Corpuscular Volume 93 fl (79-97); Monocytes # (Auto) 0.8 K/mm3 (0.0-0.8); Monocytes % (Auto) 9.5 % (0.0-7.3); Platelet Count 288 K/mm3 (140-440); Red Blood Count 3.48 M/mm3 (3.65-5.03); Red Cell Distribution Width 14.8 % (13.2-15.2)
[2020-12-25] MEDS ORDERED: MIDAZOLAM 5 MG/5 ML INJ MDV IV NR (22:00)
--- NOTE | 2020-12-25 22:06 | History and Physical Report ---
Medications and Allergies Allergies Allergy/AdvReac Type Severity Reaction Status Date / Time aspirin Allergy Shortness Verified 12/25/20 20:40 of Breath Home Medications Medication Instructions Recorded Confirmed Last Taken Type Lisinopril/Hydrochlorothiazide 1 tab PO QDAY #30 tab 09/04/16 Unknown Rx [Zestoretic 20-25 mg] Neomycin/Bacitracin/Polymyxinb 1 appful TP TID #1 bottle 09/04/16 Unknown Rx [Neosporin Antibiotic Ointment] traMADoL [Ultram 50 MG tab] 50 mg PO Q6HR PRN #20 tablet 09/04/16 Unknown Rx Omeprazole 40 mg PO DAILY #14 capsule.dr 01/11/17 Unknown Rx Ondansetron [Zofran TAB] 4 mg PO Q8HR PRN #30 tablet 01/11/17 Unknown Rx Sucralfate [Carafate] 1 gm PO Q6HR #40 tablet 01/11/17 Unknown Rx Acetaminophen 500 mg PO Q8H PRN #30 tablet 08/27/17 Unknown Rx Ondansetron [Zofran Odt] 4 mg PO Q8HR PRN #20 tab.rapdis 08/27/17 Unknown Rx Sulfamethoxazole/Trimethoprim 1 each PO BID #14 tablet 08/27/17 Unknown Rx [Bactrim DS TAB] Clindamycin [Clindamycin CAP] 300 mg PO Q8H 7 Days cap 09/12/17 Unknown Rx HYDROcodone/APAP 5-325 [[place] 1 each PO Q6HR PRN #15 tablet 09/12/17 Unknown Rx 5/325] Ibuprofen [Motrin] 800 mg PO Q8HR PRN #14 tablet 09/12/17 Unknown Rx Famotidine [Pepcid] 40 mg PO QHS #14 tablet 09/08/19 Unknown Rx Hyoscyamine Subl [Levsin Sl 0.125 0.125 mg SL Q6HR PRN #7 tab 09/08/19 Unknown Rx TAB] Promethazine HCl [Phenergan SUPPOS] 25 mg RC Q8HR PRN #10 supp.rect 09/08/19 Unknown Rx cephALEXin [Keflex] 500 mg PO BID 7 Days #14 cap 09/08/19 Unknown Rx traMADoL [Ultram 50 MG tab] 50 mg PO Q6HR PRN #12 tablet 06/24/20 Unknown Rx Active Meds: Active Medications Sodium Chloride (Nacl 0.9% 500 Ml) 500 mls @ 999 mls/hr IV ONCE ONE Stop: 12/25/20 22:25 Midazolam HCl (Midazolam 5 Mg/5 Ml Inj Mdv) 2 mg IV ONCE NR Stop: 12/25/20 23:59 Nitroglycerin (Nitroglycerin 0.4 Mg Tab Subl) 0.4 mg SL .Q5MIN PRN PRN Reason: Chest Pain Physical Examination - Vital Signs Vital Signs: Vital Signs Temp Pulse Resp BP Pulse Ox 98.6 F 66 16 144/86 99 12/25/20 20:38 12/25/20 20:38 12/25/20 20:38 12/25/20 20:38 12/25/20 20:38 Results - Laboratory Findings CBC and BMP: 12/25/20 21:18 Abnormal Lab Findings: Abnormal Labs 12/25/20 21:18 RBC 3.48 L [place] % (Auto) 9.5 H Assessment and Plan [facility] Consult Note # Demographics Consult Type: General Neurology Patient Location: Emergency Room First Name: Radha Last Name: Valeriy Date of : 1980 Age: 40 Gender: Female Facility: [facility] Time of Initial Page (Eastern Time): 12/25/2020, 21:58 Time of Return Call (Eastern Time): 12/25/2020, 21:59 # HPI History: 40 yo woman with history of HIV presents with chest pain, headache, blurry vision, intermittent left-sided weakness over the past two weeks. Current exam is non-focal. # Assessment Impression: Recurrent episodes of unilateral weakness concerning for TIA # Plan Thrombolytic/Intervention: NOT IV Thrombolysis or IA Intervention candidate Thrombolytic Exclusion (< 3 hour window): NIHSS = 0 Intraarterial Exclusion: other CTA pending, call back if abnormal Target Blood Pressure: SBP < 220 Permissive hypertension x 24 hours Labs: hemoglobin A1c lipid panel Imaging: (urgency: STAT): CT Angiogram Head and CT Angiogram Neck AND call back with results if abnormal Imaging: (urgency: routine): MRI Brain without contrast Diagnostic Test: echo with bubble study Therapy/Evaluation: NPO until swallow evaluation PT/OT evaluation speech/swallow consultation DVT Prophylaxis: SCD chemical DVT prophylaxis Other: LDL < 70 telemetry monitoring I have discussed my recommendations with the referring provider Additional Recommendations: Admit for further workup Disposition: admit # Logistics Telemedicine: phone only
[2020-12-25 22:16] LABS: Alanine Aminotransferase 5 units/L (7-56); Albumin 3.6 g/dL (3.9-5); BUN/Creatinine Ratio 20; Blood Urea Nitrogen 16 mg/dL (7-17); Calcium 8.4 mg/dL (8.4-10.2); Hemolysis Index 1
[2020-12-25 23:33] LABS: Bilirubin,Urine NEG (Negative); Blood,Urine NEG (Negative); Color,Urine Yellow (Yellow); Mucus,Urine 3+ /HPF; Protein,Urine <15 mg/dL mg/dL (Negative)
--- NOTE | 2020-12-25 23:39 | Cat Scan Report ---
. CT head without contrast INDICATION : gutierrez, blurry vision, left sided TIA W CHEST PAIN. TECHNIQUE: Axial imaging performed from the skull apex through the skull base without the use of con trast. All CT scans at this location are performed using CT dose reduction for ALARA by means of aut omated exposure control. COMPARISON: None FINDINGS: Parenchyma: Negative for mass, stroke or hemorrhage. Ventricles: Ventricles are normal in size and appear symmetric. Soft tissues: Soft tissues including the orbits appear normal. Bones: No acute osseous abnormality. Sinuses: Sinuses and mastoid air cells are clear. IMPRESSION: No acute abnormality. Signer Name: Arturo Ferrera MD Signed: 12/25/2020 11:35 PM Workstation Name: [id number]
[2020-12-25 23:40] LABS: Amphetamine Screen,Urine PRESUMPTIVE NEGATIVE; Benzodiazepines Screen,Urine PRESUMPTIVE NEGATIVE; Cannabinoid Screen,Urine PRESUMPTIVE POSITIVE; Cocaine Screen,Urine PRESUMPTIVE NEGATIVE; Methadone Screen,Urine PRESUMPTIVE NEGATIVE; Opiate Screen,Urine PRESUMPTIVE NEGATIVE
--- NOTE | 2020-12-25 23:45 | Cat Scan Report ---
CTA NECK WITH CONTRAST 12/25/2020 INDICATION / CLINICAL INFORMATION: gutierrez, blurry vision, left sided TIA W CHEST PAIN. COMPARISON: None. TECHNIQUE: Routine CTA of the neck is performed. 3-D/MIP reformats were postprocessed. Percentage st enosis is determined by direct quantitative measurements of diseased internal carotid artery diameter compared with normal distal internal carotid artery reference segments or by criteria similar to JASMINE CET where applicable. All CT scans at this location are performed using CT dose reduction for ALARA b y means of automated exposure control. CONTRAST: 100 ml of contrast FINDINGS: Carotid bifurcations: No significant abnormality Carotid arteries: No significant abnormality. Cervical vertebral arteries: No significant abnormality. Aortic arch: No significant abnormality. None. IMPRESSION: No significant abnormality. Signer Name: Garrison Low MD Signed: 12/25/2020 11:40 PM Workstation Name: [id number]
--- NOTE | 2020-12-25 23:47 | Cat Scan Report ---
CTA HEAD WITH CONTRAST 12/25/2020 HISTORY: gutierrez, blurry vision, left sided TIA W CHEST PAIN. COMPARISON: None. TECHNIQUE: All CT scans at this location are performed using CT dose reduction for ALARA by means of automated exposure control.. 3-D/MIP reformats postprocessed. Percentage stenosis is determined by d irect quantitative measurements of diseased internal carotid artery diameter compared with normal dis suzy internal carotid artery reference segments or by criteria similar to NASCET where applicable. CONTRAST: 100 ml of Omnipaque 350 FINDINGS: CTA HEAD: Intracranial vertebral arteries: No significant abnormality. Basilar artery: No significant abnormality. Posterior cerebral arteries: No significant abnormality. Intracranial internal carotid arteries: No significant abnormality. Anterior cerebral arteries: No significant abnormality. Middle cerebral arteries: No significant abnormality. Dural venous sinuses:Not optimally opacified. No significant abnormality. Additional findings: None. IMPRESSION: 1. No significant abnormality. Signer Name: Garrison Low MD Signed: 12/25/2020 11:43 PM Workstation Name: [id number]
[2020-12-25] MEDS ORDERED: CLOPIDOGREL 75 MG TAB PO ONE (23:48)
[2020-12-26] MEDS ORDERED: oxyCODONE /ACETAMINOPHEN 5-325MG TAB PO PRN (00:15)
[2020-12-26] MEDS ORDERED: MAGNESIUM HYDROXIDE (MOM) ORAL LIQD UDC PO PRN (00:15)
[2020-12-26] MEDS ORDERED: SENNOSIDES 8.6 MG TAB PO PRN (00:15)
[2020-12-26] MEDS ORDERED: ALUM-MAG HYDROXIDE-SIMETHICONE 200-200-20MG/5ML ORAL LIQD 30 ML PO PRN (00:15)
[2020-12-26] MEDS ORDERED: ACETAMINOPHEN 325 MG TAB PO PRN ×2 (00:15)
[2020-12-26] MEDS ORDERED: traMADol 50 MG TAB PO PRN (00:15)
[2020-12-26] MEDS ORDERED: ONDANSETRON 4 MG/2 ML INJ IV PRN (00:15)
[2020-12-26] MEDS ORDERED: HYOSCYAMINE SUBL 0.125 MG TAB SL PRN (00:20)
--- NOTE | 2020-12-26 00:27 | History and Physical Report ---
History of Present Illness Date of examination: 12/25/20 Date of admission: 12/25/20 Chief complaint: chest pain History of present illness: The patient is a 40-year-old female seen at bedside in ED. Patient has history of hypertension and HIV currently on antiviral therapy. Patient came to emergency room with chief complaint of headaches and chest pain. Per ED record, patient complained of "seeing stars", headache which is frontal, present for the past couple days, not sudden, not thunderclap in nature associated with intermittent left arm and left leg weakness and numbness, this has been present itself intermittently over the past few weeks, and central chest pain and pressure. I reviewed patient medication record, past medical history, and medication administration. reviewed radidiology report. CTA of the neck with contrast no significant finding.CTA head with contrastalso no significant finding. CT of the head no acute abnormality noted. Checks x-rayno acute finding. Rib Past History Past Medical History: other (HIV) Past Surgical History: , Other Social history: lives with family, full code. denies: smoking, alcohol abuse, prescription drug abuse, IV drug use Family history: no significant family history Medications and Allergies Allergies Allergy/AdvReac Type Severity Reaction Status Date / Time aspirin Allergy Shortness Verified 12/25/20 20:40 of Breath Home Medications Medication Instructions Recorded Confirmed Last Taken Type Biktarvy 50-200-25 mg Tablet 1 tab PO DAILY 12/26/20 12/26/20 12/25/20 08:00 History Active Meds: Active Medications Acetaminophen (Acetaminophen 325 Mg Tab) 650 mg PO Q4H PRN PRN Reason: Pain MILD(1-3)/Fever >100.5/DURBIN Al Hydrox/Mg Hydrox/Simethicone (Alum-Mag Hydroxide-Simethicone [id number]/5ml Oral Liqd 30 Ml) 30 ml PO Q4H PRN PRN Reason: Indigestion Magnesium Hydroxide (Magnesium Hydroxide (Mom) Oral Liqd Udc) 30 ml PO Q4H PRN PRN Reason: Constipation Nitroglycerin (Nitroglycerin 0.4 Mg Tab Subl) 0.4 mg SL .Q5MIN PRN PRN Reason: Chest Pain Ondansetron HCl (Ondansetron 4 Mg/2 Ml Inj) 4 mg IV Q8H PRN PRN Reason: Nausea And Vomiting Oxycodone/Acetaminophen (Oxycodone /Acetaminophen 5-325mg Tab) 1 tab PO Q6H PRN PRN Reason: Pain, Moderate (4-6) Senna (Sennosides 8.6 Mg Tab) 8.6 mg PO Q12HR PRN PRN Reason: Constipation Sodium Chloride (Sodium Chloride 0.9% 10 Ml Flush Syringe) 10 ml IV BID CICI Sodium Chloride (Sodium Chloride 0.9% 10 Ml Flush Syringe) 10 ml IV PRN PRN PRN Reason: LINE FLUSH Tramadol HCl (Tramadol 50 Mg Tab) 50 mg PO Q6H PRN PRN Reason: Pain, Moderate (4-6) Review of Systems Constitutional: weakness Ears, nose, mouth and throat: no epistaxis, no bleeding gums Cardiovascular: chest pain Respiratory: no congestion, no wheezing Gastrointestinal: no melena Rectal: no hemorrhoids Musculoskeletal: no muscle weakness Integumentary: no rash, no pruritis, no redness Hematologic/Lymphatic: no easy bruising, no easy bleeding, no lymphadenopathy, no lymphedema Allergic/Immunologic: no urticaria, no allergic rhinitis Exam - Constitutional Vitals: Temp Pulse Resp BP Pulse Ox 98.6 F 66 16 144/86 99 12/25/20 20:38 12/25/20 20:38 12/25/20 20:38 12/25/20 20:38 12/25/20 20:38 General appearance: Present: mild distress, well-nourished - EENT Eyes: Present: PERRL ENT: hearing intact, clear oral mucosa - Neck Neck: Present: supple, normal ROM - Respiratory Respiratory effort: normal Respiratory: bilateral: CTA - Cardiovascular Heart Sounds: Present: S1 & S2. Absent: rub, click - Extremities Extremities: pulses symmetrical, No edema Peripheral Pulses: within normal limits - Abdominal General gastrointestinal: Present: soft, non-tender, non-distended, normal bowel sounds Female genitourinary: Present: normal - Integumentary Integumentary: Present: clear, warm, dry - Musculoskeletal Musculoskeletal: gait normal, strength equal bilaterally - Psychiatric Psychiatric: appropriate mood/affect, intact judgment & insight - Neurologic Neurologic: CNII-XII intact, moves all extremities - Allied Health Allied health notes reviewed: nursing, PT HEART Score - HEART Score EKG: Non-specific Age: 45-65 Risk factors: > 3 risk factors or hx of atherosclerotic disease Troponin: Troponin T < 0.010 ng/mL (0.00-0.029) 12/25/20 21:18 Troponin: < normal limit - Critical Actions Critical Actions: 4-6 pts:12-16.6% risk of adverse cardiac event. Should be admi tted Results - Labs CBC & Chem 7: 12/26/20 04:30 12/26/20 04:30 Labs: Abnormal lab results 12/25/20 12/25/20 Range/Units 21:18 21:18 RBC 3.48 L (3.65-5.03) M/mm3 [place] % (Auto) 9.5 H (0.0-7.3) % ALT 5 L (7-56) units/L Albumin 3.6 L (3.9-5) g/dL Assessment and Plan - Patient Problems (1) Chest pain Current Visit: Yes Status: Acute Plan to address problem: Chest pain of questionable cause Patient reports chest pain of 5/10 at time of assessment Troponin is done and is negative. Echocardiogram follow-up with results Cardiology consult. (2) TIA (transient ischemic attack) Current Visit: Yes Status: Acute Plan to address problem: CTA of the neck/headno acute finding CT of the headno acute finding Safety and fall precaution at all times PT OT consult and neurologist consult (3) HIV (human immunodeficiency virus infection) Current Visit: Yes Status: Chronic Plan to address problem: Resume antiviral (4) Essential (primary) hypertension Current Visit: Yes Status: Acute Plan to address problem: Monitor blood pressure Resume home antihypertensive As needed hydralazine (5) Marijuana use Current Visit: Yes Status: Acute Plan to address problem: Discussed cessation (6) DVT prophylaxis Current Visit: Yes Status: Acute Plan to address problem: Subcutaneous lovenox
[2020-12-26 05:47] LABS: Basophils % (Auto) 0.3 % (0.0-1.8); Eosinophils % (Auto) 0.4 % (0.0-4.3); Hematocrit 31.5 % (30.3-42.9); Hemoglobin 10.1 gm/dl (10.1-14.3); Lymphocytes # (Auto) 2.3 K/mm3 (1.2-5.4); Lymphocytes % (Auto) 32.6 % (13.4-35.0); Mean Corpuscular HGB Conc 32 % (30-34); Mean Corpuscular Volume 93 fl (79-97); Monocytes # (Auto) 0.6 K/mm3 (0.0-0.8); Monocytes % (Auto) 8.7 % (0.0-7.3); Platelet Count 281 K/mm3 (140-440); Red Cell Distribution Width 14.6 % (13.2-15.2)
[2020-12-26 06:02] LABS: BUN/Creatinine Ratio 16; Blood Urea Nitrogen 13 mg/dL (7-17); Calcium 8.5 mg/dL (8.4-10.2); Hemolysis Index 0
[2020-12-26] MEDS ORDERED: hydrALAZINE 20 MG/1 ML INJ IV PRN (06:32)
[2020-12-26] MEDS ORDERED: traZODone 50 MG TAB PO PRN (06:32)
[2020-12-26 08:46] VITALS: BP 165/92
--- NOTE | 2020-12-26 09:06 | Discharge Summary ---
Providers - Providers Date of Admission: 12/26/20 02:38 Attending physician: MONIKA CRUM MD 12/26/20 Consult to Cardiac Rehabilitation [CONS] Routine Reason For Exam: Phase I 12/26/20 00:15 Consult to Physician [CONS] Stat Comment: Consulting Provider: BARRY NEFF Physician Instructions: Reason For Exam: chest pain 12/26/20 04:19 Occupational Therapy Evaluate and Treat [CONS] Stat Comment: Reason For Exam: TIA Physical Therapy Evaluation and Treat [CONS] Stat Comment: Reason For Exam: TIA Primary care physician: CRANE MANAGER Hospitalization Reason for admission: chest pain Condition: Stable Hospital course: The patient is a 40-year-old female seen at bedside in ED. Patient has history of hypertension and HIV currently on antiviral therapy. Patient came to emergency room with chief complaint of headaches and chest pain. Per ED record, patient complained of "seeing stars", headache which is frontal, present for the past couple days, not sudden, not thunderclap in nature associated with intermittent left arm and left leg weakness and numbness, this has been present itself intermittently over the past few weeks, and central chest pain and pressure. I reviewed patient medication record, past medical history, and medication administration. reviewed radidiology report. CTA of the neck with contrast no significant finding.CTA head with contrastalso no significant finding. CT of the head no acute abnormality noted. Checks x-rayno acute finding. Rib on my examination, she focused more on her head and life stressors. she also reports Left sided intermittent weekness, family hx of stroke. She denies photophobia and phonophobia. She is following with her PCP on monday, I have recommended outpaitnet stress test and no sternous activity till done and also MRI of brain outpatient. She tolerated Plavix, so will keep on plavix and statin till all work up is complete. She verbalized understanding (1) Atypical Chest pain secondary to costochondritis Current Visit: Yes Status: Acute Plan to address problem: Chest pain of questionable cause Patient reports chest pain of 5/10 at time of assessment Troponin is done and is negative. Echocardiogram follow-up with results Cardiology consult. (2) TIA (transient ischemic attack) Current Visit: Yes Status: Acute Plan to address problem: CTA of the neck/headno acute finding CT of the headno acute finding Safety and fall precaution at all times PT OT consult and neurologist consult (3) HIV (human immunodeficiency virus infection) Current Visit: Yes Status: Chronic Plan to address problem: Resume antiviral (4) Essential (primary) hypertension Current Visit: Yes Status: Acute Plan to address problem: Monitor blood pressure Resume home antihypertensive As needed hydralazine (5) Marijuana use Current Visit: Yes Status: Acute Plan to address problem: Discussed cessation (6) Anxiety Disposition: 01 HOME / SELF CARE / HOMELESS Final Discharge Diagnosis (Prints w/discharge instructions): Atypical chest pain with possible superimposed TIA Time spent for discharge: 35 MINS Core Measure Documentation - Palliative Care Palliative Care/ Comfort Measures: Not Applicable - Core Measures Any of the following diagnoses?: none Exam - Physical Exam Narrative exam: General appearance: Present: mild distress, well-nourished - EENT Eyes: Present: PERRL ENT: hearing intact, clear oral mucosa - Neck Neck: Present: supple, normal ROM - Respiratory Respiratory effort: normal Respiratory: bilateral: CTA - Cardiovascular Heart Sounds: Present: S1 & S2. Absent: rub, click - Extremities Extremities: pulses symmetrical, No edema Peripheral Pulses: within normal limits - Abdominal General gastrointestinal: Present: soft, non-tender, non-distended, normal bowel sounds Female genitourinary: Present: normal - Integumentary Integumentary: Present: clear, warm, dry - Musculoskeletal Musculoskeletal: gait normal, strength equal bilaterally - Psychiatric Psychiatric: appropriate mood/affect, intact judgment & insight - Neurologic Neurologic: CNII-XII intact, moves all extremities - Allied Health Allied health notes reviewed: nursing, PT - Constitutional Vitals: Temp Pulse Resp BP Pulse Ox 98.2 F 61 16 165/92 100 12/26/20 08:19 12/26/20 08:19 12/26/20 08:19 12/26/20 08:19 12/26/20 08:19 Plan Activity: advance as tolerated, fall precautions, other (continue plavix and statin until MRI done by Neurologist) Diet: low fat Special Instructions: record daily weights, record daily BP diary Follow up with: VALERI DUMONT MD [Primary Care Provider] - 3-5 Days ARAMIS CHASE MD [Staff Physician] - 7 Days BARRY NEFF MD [Staff Physician] - 7 Days Prescriptions: AtorvaSTATin [Lipitor] 40 mg PO QHS #30 tab hydroCHLOROthiazide [HCTZ] 25 mg PO QDAY #30 tablet Clopidogrel [Plavix] 75 mg PO QDAY #30 tablet lisinopriL [Zestril TAB] 20 mg PO QDAY #30 tablet
[2020-12-26] MEDS ORDERED: ENOXAPARIN 40 MG/0.4 ML INJ SUB-Q SCH (10:00)
[2020-12-26] MEDS ORDERED: LISINOPRIL 20 MG TAB PO SCH (10:00)
[2020-12-26] MEDS ORDERED: NON-FORMULARY EACH (Lisinopril/Hydrochlorothiazide [Zestoretic 20-25 Mg] 1 EACH Tablet) PO SCH (10:00)
[2020-12-26] MEDS ORDERED: NON-FORMULARY EACH (Biktarvy 50-200-25 Mg Tablet 1 TAB) PO SCH (10:00)
[2020-12-26] MEDS ORDERED: hydroCHLOROthiazide 25 MG TAB PO SCH (10:00)
[2020-12-26] MEDS ORDERED: POTASSIUM CHLORIDE ER 20 MEQ TAB PO ONE (10:06)
--- NOTE | 2020-12-26 10:11 | Consultation ---
History of Present Illness Consult date: 12/26/20 Consult reason: chest pain History of present illness: 40 year old female presenting with atypical chest pain. Pain is non-radiating and non-exertional. Pain is poorly characterized. She denies syncope or shortness of breath. She had a gastric sleeve surgery back in June 2019 and prior to her procedure she underwent cardiac stress testing and echo in [place]. Results are reportedly normal per patient. This admission, ECG is showing no ischemic changes and troponin negative x 3. Upon EMS arrival to her house, patient BP was in the 200 systolic. Patient was taken off all her BP meds after losing weight post gastric sleeve surgery. She is currently asymptomatic and sinus rhythm on tele. Past History Past Medical History: other (HIV) Past Surgical History: , Other Social history: lives with family, full code. denies: smoking, alcohol abuse, prescription drug abuse, IV drug use Family history: no significant family history Medications and Allergies Allergies Allergy/AdvReac Type Severity Reaction Status Date / Time aspirin Allergy Shortness Verified 12/25/20 20:40 of Breath Home Medications Medication Instructions Recorded Confirmed Last Taken Type AtorvaSTATin [Lipitor] 40 mg PO QHS #30 tab 12/26/20 Unknown Rx Biktarvy 50-200-25 mg Tablet 1 tab PO DAILY 12/26/20 12/26/20 12/25/20 08:00 History Clopidogrel [Plavix] 75 mg PO QDAY #30 tablet 12/26/20 Unknown Rx Hyoscyamine Subl [Levsin Sl 0.125 0.125 mg SL Q6H PRN tablet 12/26/20 Unknown Rx TAB] hydroCHLOROthiazide [HCTZ] 25 mg PO QDAY #30 tablet 12/26/20 Unknown Rx lisinopriL [Zestril TAB] 20 mg PO QDAY #30 tablet 12/26/20 Unknown Rx Active Meds: Active Medications Acetaminophen (Acetaminophen 325 Mg Tab) 650 mg PO Q4H PRN PRN Reason: Pain MILD(1-3)/Fever >100.5/DURBIN Last Admin: 12/26/20 04:16 Dose: 650 mg Documented by: Al Hydrox/Mg Hydrox/Simethicone (Alum-Mag Hydroxide-Simethicone [phone]/5ml Oral Liqd 30 Ml) 30 ml PO Q4H PRN PRN Reason: Indigestion Enoxaparin Sodium (Enoxaparin 40 Mg/0.4 Ml Inj) 40 mg SUB-Q DAILY [facility]; Protocol Last Admin: 12/26/20 09:54 Dose: 40 mg Documented by: Hydralazine HCl (Hydralazine 20 Mg/1 Ml Inj) 5 mg IV Q4H PRN PRN Reason: Hypertension Hydrochlorothiazide (Hydrochlorothiazide 25 Mg Tab) 25 mg PO QDAY [facility] Last Admin: 12/26/20 09:54 Dose: 25 mg Documented by: Hyoscyamine (Hyoscyamine Subl 0.125 Mg Tab) 0.125 mg SL Q6H PRN PRN Reason: abdominal cramping/diarrhea Lisinopril (Lisinopril 20 Mg Tab) 20 mg PO QDAY [facility] Last Admin: 12/26/20 09:54 Dose: 20 mg Documented by: Magnesium Hydroxide (Magnesium Hydroxide (Mom) Oral Liqd Udc) 30 ml PO Q4H PRN PRN Reason: Constipation Miscellaneous Medication (Biktarvy 50-200-25 Mg Tablet) 1 tab PO DAILY [facility] Nitroglycerin (Nitroglycerin 0.4 Mg Tab Subl) 0.4 mg SL .Q5MIN PRN PRN Reason: Chest Pain Ondansetron HCl (Ondansetron 4 Mg/2 Ml Inj) 4 mg IV Q8H PRN PRN Reason: Nausea And Vomiting Oxycodone/Acetaminophen (Oxycodone /Acetaminophen 5-325mg Tab) 1 tab PO Q6H PRN PRN Reason: Pain, Moderate (4-6) Senna (Sennosides 8.6 Mg Tab) 8.6 mg PO Q12HR PRN PRN Reason: Constipation Sodium Chloride (Sodium Chloride 0.9% 10 Ml Flush Syringe) 10 ml IV BID [facility] Last Admin: 12/26/20 09:55 Dose: 10 ml Documented by: Sodium Chloride (Sodium Chloride 0.9% 10 Ml Flush Syringe) 10 ml IV PRN PRN PRN Reason: LINE FLUSH Tramadol HCl (Tramadol 50 Mg Tab) 50 mg PO Q6H PRN PRN Reason: Pain, Moderate (4-6) Trazodone HCl (Trazodone 50 Mg Tab) 50 mg PO QHS PRN PRN Reason: Insomnia Review of Systems All systems: negative Physical Examination Vital Signs Temp Pulse Resp BP Pulse Ox 98.6 F 66 16 144/86 99 12/25/20 20:38 12/25/20 20:38 12/25/20 20:38 12/25/20 20:38 12/25/20 20:38 General appearance: no acute distress Neck: Positive: neck supple Cardiac: Positive: Reg Rate and Rhythm Lungs: Positive: Normal Exam Abdomen: Positive: Unremarkable, Soft Extremities: Absent: edema Results 12/26/20 04:30 12/26/20 04:30 Cardiac Enzymes 12/25/20 Range/Units 21:18 AST 10 (5-40) units/L CBC 12/25/20 12/26/20 Range/Units 21:18 04:30 WBC 8.4 7.2 (4.5-11.0) K/mm3 RBC 3.48 L 3.40 L (3.65-5.03) M/mm3 Hgb 10.2 10.1 (10.1-14.3) gm/dl Hct 32.4 31.5 (30.3-42.9) % Plt Count 288 281 (140-440) K/mm3 Lymph # (Auto) 2.3 2.3 (1.2-5.4) K/mm3 [place] # (Auto) 0.8 0.6 (0.0-0.8) K/mm3 Eos # (Auto) 0.0 0.0 (0.0-0.4) K/mm3 Baso # (Auto) 0.0 0.0 (0.0-0.1) K/mm3 Comprehensive Metabolic Panel 12/25/20 12/26/20 Range/Units 21:18 04:30 Sodium 138 139 (137-145) mmol/L Potassium 4.2 3.5 L (3.6-5.0) mmol/L Chloride 104.2 104.6 (98-107) mmol/L Carbon Dioxide 24 25 (22-30) mmol/L BUN 16 13 (7-17) mg/dL Creatinine 0.8 0.8 (0.6-1.2) mg/dL Glucose 81 78 (65-100) mg/dL Calcium 8.4 8.5 (8.4-10.2) mg/dL AST 10 (5-40) units/L ALT 5 L (7-56) units/L Alkaline Phosphatase 63 (35-129) units/L Total Protein 7.4 (6.3-8.2) g/dL Albumin 3.6 L (3.9-5) g/dL EKG interpretations - Telemetry EKG Rhythm: Sinus Rhythm Assessment and Plan Atypical chest pain No ischemic changes on ECG Negative troponin x 3 Normal cardiac examination Reportedly normal cardiac work-up June 2019 prior to gastric sleeve surgery Essential hypertension HIV ? TIA Normal CTA head and neck this admission No neurological deficits on exam Recommendations: Patient may go home from a cardiac standpoint Follow-up with [facility] as outpatient Patient given contact info to call and schedule appt on Monday
--- NOTE | 2020-12-29 10:47 | Electrocardiograph Report ---
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
--- NOTE | 2020-12-29 10:48 | Electrocardiograph Report ---
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
--- NOTE | 2020-12-29 10:54 | Electrocardiograph Report ---
[facility] Test Date: 2020-12-26 Test Time: 10:14:45 Pat Name: HUBERT MICHAEL Department: Room: A468 1 Gender: F [employer] Consultant: IRAIS : 1980 Requested By: SOSA GRACE Order Number: [id number] Reading MD: Cesilia Dill Measurements Intervals [place] Rate: 59 P: 60 [place]: 223 QRS: 34 QRSD: 95 T: 42 QT: 404 QTc: 399 Interpretive Statements Sinus rhythm Prolonged [place] interval Probable left ventricular hypertrophy Compared to ECG 12/25/2020 21:56:34 No significant changes Electronically Signed On 12-29-2020 10:53:30 EST by Cesilia Dill
== END 2020-12-26 12:26 | disposition home or self-care (01) ==
LOC: ED 20:07 → 4A 12-26 02:38
PROVIDERS: ADMIT Internal Medicine Geriatric Medicine; ATTEND Internal Medicine
DX: R07.89 Other chest pain (principal); G45.9 Transient cerebral ischemic attack, unspecified; I10 Essential (primary) hypertension; E66.9 Obesity, unspecified; K58.9 Irritable bowel syndrome, unspecified; F12.90 Cannabis use, unspecified, uncomplicated; M94.0 Chondrocostal junction syndrome [Tietze]; F41.9 Anxiety disorder, unspecified; R51.9 Headache, unspecified; R29.700 NIHSS score 0; Z21 Asymptomatic human immunodeficiency virus [HIV] infection status; Z98.891 History of uterine scar from previous surgery; Z79.899 Other long term (current) drug therapy; Z98.890 Other specified postprocedural states; Z90.49 Acquired absence of other specified parts of digestive tract; Z68.41 Body mass index [BMI] 40.0-44.9, adult
CPT/HCPCS: 36415; 70450; 70496; 70498; 71046; 80048; 80053; 80307; 81001; 83036; 84484; 84702; 85025; 93005; 96372; 96374; 96375; 99285; G0378; J1650; J2250; J2765; J3490; J7040; Q9967

== ENCOUNTER 2021-01-07 13:51 | Emergency (ER) | payer MEDICARE ==
[2021-01-07] MEDS ORDERED: KETOROLAC 30 MG/1 ML INJ IV ONE (15:15)
[2021-01-07] MEDS ORDERED: METOCLOPRAMIDE 10 MG/2 ML INJ IV ONE (15:15)
[2021-01-07] MEDS ORDERED: diphenhydrAMINE 50 MG/ML VIAL IV ONE (15:15)
[2021-01-07] MEDS ORDERED: SODIUM CHLORIDE 0.9% 1000 ML 1,000 ML IV ONE (15:15)
--- NOTE | 2021-01-07 15:39 | Emergency Department Report ---
ED Syncope HPI - General Chief Complaint: Syncope Stated Complaint: LIGHTHEADED, DIZZINESS Time Seen by Provider: 01/07/21 14:03 Source: patient Exam Limitations: no limitations - History of Present Illness Initial Comments: 40-year-old female with a past medical history obesity, of HIV with undetectable viral load, hypertension presents to the hospital planing of lightheadedness feeling for the past several days, headache, and had a syncopal episode last night. Patient states that she has intermittent episodes of feeling lightheaded particularly with postural changes. She often needs the support of others or objects in order not to fall. She used a wheelchair to make it to the bed in the ED. patient got out of bed approximately 10:30 PM and woke up on the floor in the hallway. Patient not recall how she got there or the events preceding her fall/syncopal episode. Patient has had intermittent frontal dull headache that has become more constant today. She has a history of headaches in the past and used to be on a headache medication but denies a diagnosis of migraines. She is recently admitted here earlier this month for chest pain, hypertension, and TIA work-up. MRI not performed during admission. She followed up with Dr. Prasad as outpatient for 1 day of Holter monitoring and is expecting the results next week on January 12. She is also in the process of scheduling outpatient neurology work-up at [place]. Patient denies blurred vision, photopho nisha, shortness of breath, nausea, vomiting, worsening in her chronic chest pain, or abdominal pain. - Related Data Allergies/Adverse Reactions: Allergies aspirin Allergy (Verified 01/07/21 13:57) Shortness of Breath Home Medications: Ambulatory Orders AtorvaSTATin [Lipitor] 40 mg PO QHS #30 tab 12/26/20 Biktarvy 50-200-25 mg Tablet 1 tab PO DAILY 12/26/20 Clopidogrel [Plavix] 75 mg PO QDAY #30 tablet 12/26/20 Hyoscyamine Subl [Levsin Sl 0.125 TAB] 0.125 mg SL Q6H PRN tablet 12/26/20 hydroCHLOROthiazide [HCTZ] 25 mg PO QDAY #30 tablet 12/26/20 lisinopriL [Zestril TAB] 20 mg PO QDAY #30 tablet 12/26/20 Butalb/Acetaminophen/Caffeine [Fioricet 50-300-40 mg CAP] 1 cap PO Q8HR PRN #14 cap 01/07/21 ED Review of Systems ROS: Stated complaint: LIGHTHEADED, DIZZINESS Other details as noted in HPI Comment: All other systems reviewed and negative ED Past Medical Hx - Past Medical History Hx Hypertension: Yes Hx Congestive Heart Failure: No Hx Diabetes: No Hx Asthma: No Hx COPD: No Hx HIV: Yes Additional medical history: obesity, IBS - Surgical History Hx Cholecystectomy: Yes Additional Surgical History: c-sec x 2; scar tissue removal 2012 GASTRIC SLEEVE - Social History Smoking Status: Former Smoker - Medications Home Medications: Home Medications Medication Instructions Recorded Confirmed Last Taken Type AtorvaSTATin [Lipitor] 40 mg PO QHS #30 tab 12/26/20 Unknown Rx Biktarvy 50-200-25 mg Tablet 1 tab PO DAILY 12/26/20 12/26/20 12/25/20 08:00 History Clopidogrel [Plavix] 75 mg PO QDAY #30 tablet 12/26/20 Unknown Rx Hyoscyamine Subl [Levsin Sl 0.125 0.125 mg SL Q6H PRN tablet 12/26/20 Unknown Rx TAB] hydroCHLOROthiazide [HCTZ] 25 mg PO QDAY #30 tablet 12/26/20 Unknown Rx lisinopriL [Zestril TAB] 20 mg PO QDAY #30 tablet 12/26/20 Unknown Rx Butalb/Acetaminophen/Caffeine 1 cap PO Q8HR PRN #14 cap 01/07/21 Unknown Rx [Fioricet 50-300-40 mg CAP] ED Physical Exam - General Limitations: No Limitations - Other Other exam information: General: No acute distress Head: Atraumatic Eyes: normal appearance ENT: Moist mucous membranes Neck: Normal appearance, no midline tenderness, no nuchal rigidity Chest: Clear to auscultation bilaterally CV: Regular rate and rhythm Abdomen: Soft, normal bowel sounds, nontender, nondistended, no rebound or guarding Back: Normal inspection Extremity: Normal inspection, full range of motion, no calf tenderness or leg edema Neuro: Alert O x 3, no facial asymmetry, speech clear, no gross motor sensory deficit, [id number] function intact Psych: Appropriate behavior Skin: No rash ED Course Vital Signs 01/07/21 01/07/21 01/07/21 13:58 14:13 14:16 Temperature 98.2 F Pulse Rate 76 73 72 Respiratory 18 14 14 Rate Blood Pressure Blood Pressure 116/64 [Left] O2 Sat by Pulse 100 100 100 Oximetry 01/07/21 01/07/21 01/07/21 14:30 14:46 15:00 Temperature Pulse Rate 63 63 60 Respiratory 12 15 17 Rate Blood Pressure Blood Pressure [Left] O2 Sat by Pulse 100 92 100 Oximetry 01/07/21 01/07/21 01/07/21 15:16 15:30 15:52 Temperature Pulse Rate 67 63 62 Respiratory 17 14 10 L Rate Blood Pressure 105/72 105/72 105/72 Blood Pressure [Left] O2 Sat by Pulse 99 100 Oximetry 01/07/21 01/07/21 01/07/21 16:00 16:16 16:30 Temperature Pulse Rate 58 L 65 63 Respiratory 13 13 14 Rate Blood Pressure 105/72 105/72 105/72 Blood Pressure [Left] O2 Sat by Pulse 100 100 100 Oximetry 01/07/21 01/07/21 01/07/21 16:46 17:00 17:16 Temperature Pulse Rate 64 64 59 L Respiratory 12 12 13 Rate Blood Pressure 105/72 105/72 105/72 Blood Pressure [Left] O2 Sat by Pulse 100 100 100 Oximetry 01/07/21 01/07/21 01/07/21 17:30 17:46 18:00 Temperature Pulse Rate 63 63 60 Respiratory 12 13 12 Rate Blood Pressure 105/72 105/72 105/72 Blood Pressure [Left] O2 Sat by Pulse 100 100 100 Oximetry 01/07/21 01/07/21 01/07/21 18:16 18:30 18:46 Temperature Pulse Rate 63 62 Respiratory 13 12 Rate Blood Pressure 105/72 105/72 105/72 Blood Pressure [Left] O2 Sat by Pulse 100 100 100 Oximetry - Reevaluation(s) Reevaluation #1: 01/07/21 17:45 Patient reports that her headache has improved currently 7/10 intensity. Headache improved after Reglan, Benadryl, and Toradol. Patient currently receiving IV fluid bolus 01/07/21 19:00 Patient tolerated ambulation in the ED without difficulty after treatment and reports feeling better - Consultations Consultation #1: 01/07/21 19:[address] Abraham on-call board hammer operator. informed pt will be d/dot to continue her outpt workup since sx improved. ED Medical Decision Making - Lab Data Result diagrams: 01/07/21 15:27 01/07/21 15:27 Lab Results 01/07/21 01/07/21 01/07/21 Range/Units 15:27 15:27 15:27 WBC 5.6 (4.5-11.0) K/mm3 RBC 3.75 (3.65-5.03) M/mm3 Hgb 11.1 (10.1-14.3) gm/dl Hct 34.6 (30.3-42.9) % MCV 93 (79-97) fl MCH 30 (28-32) pg MCHC 32 (30-34) % RDW 14.5 (13.2-15.2) % Plt Count 259 (140-440) K/mm3 Lymph % (Auto) 29.8 (13.4-35.0) % Iron % (Auto) 10.5 H (0.0-7.3) % Eos % (Auto) 0.8 (0.0-4.3) % Baso % (Auto) 0.2 (0.0-1.8) % Lymph # (Auto) 1.7 (1.2-5.4) K/mm3 Iron # (Auto) 0.6 (0.0-0.8) K/mm3 Eos # (Auto) 0.0 (0.0-0.4) K/mm3 Baso # (Auto) 0.0 (0.0-0.1) K/mm3 Seg Neutrophils % 58.7 (40.0-70.0) % Seg Neutrophils # 3.3 (1.8-7.7) K/mm3 Sodium 139 (137-145) mmol/L Potassium 4.2 (3.6-5.0) mmol/L Chloride 102.4 (98-107) mmol/L Carbon Dioxide 25 (22-30) mmol/L Anion Gap 16 mmol/L BUN 20 H (7-17) mg/dL Creatinine 1.0 (0.6-1.2) mg/dL Estimated GFR > 60 ml/min BUN/Creatinine Ratio 20 % Glucose 80 (65-100) mg/dL Calcium 8.7 (8.4-10.2) mg/dL Magnesium 1.90 (1.7-2.3) mg/dL Total Bilirubin 0.20 (0.1-1.2) mg/dL AST 12 (5-40) units/L ALT 8 (7-56) units/L Alkaline Phosphatase 61 (35-129) units/L Total Creatine Kinase 73 (30-135) units/L CK-MB (CK-2) < 1.0 (0.0-4.0) ng/mL CK-MB (CK-2) Rel Index 1.3 (0-4) Troponin T < 0.010 (0.00-0.029) ng/mL Total Protein 7.5 (6.3-8.2) g/dL Albumin 3.8 L (3.9-5) g/dL Albumin/Globulin Ratio 1.0 % HCG, Qual Negative (Negative) - EKG Data -: EKG Interpreted by Nm EKG shows normal: sinus rhythm (No ST elevation or depression), intervals (Long TN interval 224), QRS complexes (QRS duration 103), ST-T waves Rate: bradycardia (58) - EKG Data When compared to previous EKG there are: no significant change - Radiology Data Radiology results: report reviewed CT BRAIN: 01/07/2021 INDICATION / CLINICAL INFORMATION: Syncope HX TIA. CT brain 12/25/2020 COMPARISON: None available. FINDINGS: BRAIN/INTRACRANIAL STRUCTURES: Unenhanced CT images of the brain were obtained and compared to the recent prior exam from 01/07/2021. There is been no change. There is no evidence of acute abnormality. Ventricles and sulci are normal in size and shape. There is no CT evidence of acute large vessel territory ischemic injury, hemorrhage, or mass. There are no abnormal extra-axial fluid collections. EXTRACRANIAL STRUCTURES: Unremarkable. IMPRESSION: No acute abnormality. No significant change when compared to 12/25/2020. CHEST 1 VIEW INDICATION / CLINICAL INFORMATION: Syncope. COMPARISON: 12/25/2020 FINDINGS: SUPPORT DEVICES: None. HEART / MEDIASTINUM: No significant abnormality. LUNGS / PLEURA: No significant pulmonary or pleural abnormality. No pneu mothorax. ADDITIONAL FINDINGS: No significant additional findings. IMPRESSION: 1. No acute findings. - Medical Decision Making 40-year-old female presents to the hospital with headache, syncope, lightheadedness, chronic chest pain that is unchanged. Patient was admitted earlier this month with similar symptoms. She has since received outpatient stress testing, echocardiogram, Holter monitoring and scheduled to see the board hammer operator on January 12 for the results. In the ED her CT head, chest x-ray, EKG, and labs are unremarkable. Headache improved with Reglan, Benadryl, Zofran. Dizziness improved with headache treatment and 1 L of normal saline. Patient will be discharged home and encouraged to continue her outpatient work-up and evaluation by cardiology and neurology Critical Care Time: No Critical care attestation.: If time is entered above; I have spent that time in minutes in the direct care of this critically ill patient, excluding procedure time. ED Disposition Clinical Impression: Syncope, Headache, Lightheadedness Disposition: HOME / SELF CARE / HOMELESS Is pt being admited?: No Condition: Stable Instructions: Syncope (ED), Syncope, [id number], Dizziness, General Headache Without Cause Additional Instructions: Take the medication as prescribed. Follow-up with your doctor or doctor/clinic provided. Return if symptoms worsen as indicated by your discharge instructions. Prescriptions: Butalb/Acetaminophen/Caffeine [Fioricet 50-300-40 mg CAP] 1 cap PO Q8HR PRN #14 cap PRN Reason: Headache Referrals: HUMPHREY BURLESON [Other] - 3-5 Days BARRY PRASAD MD [Staff Physician] - 3-5 Days Time of Disposition: 19:11
[2021-01-07 15:45] LABS: Basophils % (Auto) 0.2 % (0.0-1.8); Eosinophils % (Auto) 0.8 % (0.0-4.3); Hematocrit 34.6 % (30.3-42.9); Hemoglobin 11.1 gm/dl (10.1-14.3); Lymphocytes # (Auto) 1.7 K/mm3 (1.2-5.4); Lymphocytes % (Auto) 29.8 % (13.4-35.0); Mean Corpuscular HGB Conc 32 % (30-34); Mean Corpuscular Volume 93 fl (79-97); Monocytes # (Auto) 0.6 K/mm3 (0.0-0.8); Monocytes % (Auto) 10.5 % (0.0-7.3); Platelet Count 259 K/mm3 (140-440); Red Blood Count 3.75 M/mm3 (3.65-5.03); Red Cell Distribution Width 14.5 % (13.2-15.2)
--- NOTE | 2021-01-07 16:04 | Cat Scan Report ---
CT BRAIN: 01/07/2021 INDICATION / CLINICAL INFORMATION: Syncope HX TIA. CT brain 12/25/2020 COMPARISON: None available. FINDINGS: BRAIN/INTRACRANIAL STRUCTURES: Unenhanced CT images of the brain were obtained and compared to the re cent prior exam from 01/07/2021. There is been no change. There is no evidence of acute abnormality. Ventricles and sulci are normal in size and shape. There is no CT evidence of acute large vessel territory ischemic injury, hemorrhage, or mass. There a re no abnormal extra-axial fluid collections. EXTRACRANIAL STRUCTURES: Unremarkable. IMPRESSION: No acute abnormality. No significant change when compared to 12/25/2020. All CT scans at this location are performed using dose reduction to ALARA by means of automated expos ure control. Signer Name: Garrison Low MD Signed: 01/07/2021 4:00 PM Workstation Name: [id number]
[2021-01-07 16:11] LABS: Alanine Aminotransferase 8 units/L (7-56); Albumin 3.8 g/dL (3.9-5); BUN/Creatinine Ratio 20; Blood Urea Nitrogen 20 mg/dL (7-17); Calcium 8.7 mg/dL (8.4-10.2); Hemolysis Index 16
[2021-01-07 16:12] LABS: Creatine Kinase MB < 1.0 ng/mL (0.0-4.0)
--- NOTE | 2021-01-07 17:06 | XRay Report ---
CHEST 1 VIEW INDICATION / CLINICAL INFORMATION: Syncope. COMPARISON: 12/25/2020 FINDINGS: SUPPORT DEVICES: None. HEART / MEDIASTINUM: No significant abnormality. LUNGS / PLEURA: No significant pulmonary or pleural abnormality. No pneumothorax. ADDITIONAL FINDINGS: No significant additional findings. IMPRESSION: 1. No acute findings. Signer Name: Ravindra Christensen MD Signed: 01/07/2021 5:02 PM Workstation Name: [id number]
[2021-01-07 19:29] VITALS: BP 121/76
== END 2021-01-07 19:27 | disposition home or self-care (01) ==
LOC: ED 13:51
DX: R55 Syncope and collapse (principal); R51.9 Headache, unspecified; R42 Dizziness and giddiness; Z90.49 Acquired absence of other specified parts of digestive tract; I10 Essential (primary) hypertension
CPT/HCPCS: 36415; 70450; 71045; 80053; 82550; 82553; 83735; 84484; 84703; 85025; 93005; 96361; 96374; 96375; 99284; J1200; J1885; J2765; J7030; Q0162